=== PATIENT | female | born 1990 | race African-American/Black ===

== ENCOUNTER 2016-11-27 21:31 | Emergency (ER) | payer SELFPAY ==
[2016-11-27 21:47] VITALS: BP 124/90
--- NOTE | 2016-11-27 21:48 | ER Document Report ---
ED Medical Screen (RME) - General Chief Complaint: Flank Pain Stated Complaint: URINARY ISSUE/MEDICATION REACTION Mode of Arrival: Ambulatory Information source: Patient Notes: pt c/o cp off/on for past 2 weeks that is constant for past hour. Pt was seen here on 11/18/16 and dx with UTI, "that had gone to the kidneys". Pt states she did not get the medication and start taking the cipro until yesterday. Pt c/o right flank pain for the past 2 weeks. Pt also c/o RLE pain TRAVEL OUTSIDE OF THE [place] IN LAST 30 DAYS: No - Related Data Allergies/Adverse Reactions: hydrocodone bitartrate [From Vicodin] Allergy (Intermediate, Verified 11/30/14 13:16) Hives tramadol [Tramadol] Allergy (Intermediate, Verified 11/30/14 13:16) Hives Past Medical History Pulmonary Medical History: Reports: Hx Asthma GI Medical History: Reports: Hx Gastroesophageal Reflux Disease Past Surgical History: Reports: Hx Section - Immunizations Hx Diphtheria, Pertussis, Tetanus Vaccination: Yes Physical Exam - Back Back: CVA tenderness - right
--- NOTE | 2016-11-27 22:32 | EKG REPORT ---
SEVERITY:- ABNORMAL ECG - SINUS TACHYCARDIA : Confirmed by: Iftikhar Leon MD 27-Nov-2016 22:31:41
[2016-11-27 23:13] LABS: ABSOLUTE EOSINOPHILS # (AUTO) 0.3 10^3/uL (0.0-0.6); ABSOLUTE MONOCYTES (AUTO) 0.7 10^3/uL (0.1-1.4); ABSOLUTE NEUT (AUTO) 4.7 10^3/uL (1.7-8.2); BASOPHILS % (AUTO) 0.3 % (0-2); EOSINOPHILS % (AUTO) 3.6 % (0-6); HEMATOCRIT 32.3 % (36.0-47.0); HEMOGLOBIN 10.5 g/dL (12.0-15.5); HGB HCT DIFFERENCE -0.8; LYMPHOCYTES % (AUTO) 34.1 % (13-45); MEAN CORPUSCULAR HEMOGLOBIN 27.4 pg (27.0-33.4); MEAN CORPUSCULAR HGB CONC 32.5 g/dL (32.0-36.0); MEAN CORPUSCULAR VOLUME 85 fl (80-97); MONOCYTES % (AUTO) 8.5 % (3-13); RED BLOOD COUNT 3.82 10^6/uL (3.72-5.28); RED CELL DISTRIBUTION WIDTH 14.9 % (11.5-14.0); SEGMENTED NEUTROPHILS % (AUTO) 53.5 % (42-78); WHITE BLOOD COUNT 8.8 10^3/uL (4.0-10.5)
[2016-11-27 23:27] LABS: ALANINE AMINOTRANSFERASE 22 U/L (9-52); ALBUMIN 4.6 g/dL (3.5-5.0); ALKALINE PHOSPHATASE 53 U/L (38-126); ANION GAP 14 (5-19); ASPARTATE AMINO TRANSFERASE 15 U/L (14-36); BILIRUBIN,TOTAL 0.3 mg/dL (0.2-1.3); BLOOD UREA NITROGEN 12 mg/dL (7-20); CALCIUM 9.6 mg/dL (8.4-10.2); CARBON DIOXIDE 22 mmol/L (22-30); CHLORIDE 109 mmol/L (98-107); CREATININE RESULT 0.87 mg/dL (0.52-1.25); GLUCOSE 92 mg/dL (75-110); LIPASE 64.4 U/L (23-300); POTASSIUM 4.2 mmol/L (3.6-5.0); SODIUM 144.8 mmol/L (137-145); TOTAL PROTEIN 7.7 g/dL (6.3-8.2)
[2016-11-27 23:40] LABS: APPEARANCE,URINE CLEAR; BILIRUBIN,URINE NEGATIVE (NEGATIVE); GLUCOSE, URINE NEGATIVE (NEGATIVE); KETONES,URINE NEGATIVE (NEGATIVE); LEUKOCYTE ESTERASE,URINE NEGATIVE (NEGATIVE); NITRITE,URINE NEGATIVE (NEGATIVE); PROTEIN,URINE NEGATIVE (NEGATIVE); URINE SPECIFIC GRAVITY 1.012; UROBILINOGEN,URINE NEGATIVE mg/dL (<2.0)
--- NOTE | 2016-11-27 23:50 | ER Document Report ---
ED General - General Chief Complaint: Flank Pain Stated Complaint: URINARY ISSUE/MEDICATION REACTION Mode of Arrival: Ambulatory Notes: Patient is a 26-year-old female with past medical history of frequent flank pain who presents with a multitude of complaints including ongoing left flank pain, nausea, vomiting and intermittent chest burning. She's been evaluated in this emergency department on a multitude of occasions for the same complaint. At time of my assessment she admits only to left flank pain and denies additional complaints that she mentioned in triage. Admits not starting her antibiotic that she was prescribed for her nephritis until earlier today. She has not seen her primary care physician regarding today's concerns. Nothing improves or worsens her symptoms. TRAVEL OUTSIDE OF THE [place] IN LAST 30 DAYS: No - Related Data Allergies/Adverse Reactions: hydrocodone bitartrate [From Vicodin] Allergy (Intermediate, Verified 11/30/14 13:16) Hives tramadol [Tramadol] Allergy (Intermediate, Verified 11/30/14 13:16) Hives Past Medical History - General Information source: Patient - Social History Smoking Status: Current Every Day Smoker Frequency of alcohol use: None Drug Abuse: None Lives with: Spouse/Significant other Family History: Reviewed & Not Pertinent Patient has suicidal ideation: No Patient has homicidal ideation: No Pulmonary Medical History: Reports: Hx Asthma GI Medical History: Reports: Hx Gastroesophageal Reflux Disease Past Surgical History: Reports: Hx Section - Immunizations Hx Diphtheria, Pertussis, Tetanus Vaccination: Yes Review of Systems - Review of Systems Notes: Constitutional: Negative for fever. HENT: Negative for sore throat. Eyes: Negative for visual changes. Cardiovascular: Negative for chest pain. Respiratory: Negative for shortness of breath. Gastrointestinal: Negative for abdominal pain, vomiting or diarrhea. Positive for left flank pain Genitourinary: Negative for dysuria. Musculoskeletal: Negative for back pain. Skin: Negative for rash. Neurological: Negative for headaches, weakness or numbness. 10 point ROS negative except as marked above and in HPI. Physical Exam - Vital signs Vitals: Temp Pulse Resp BP Pulse Ox 98.3 F 101 H 16 124/90 H 99 11/27/16 21:46 11/27/16 21:46 11/27/16 21:46 11/27/16 21:46 11/27/16 21:46 Interpretation: Tachycardic Notes: PHYSICAL EXAMINATION: GENERAL: Well-appearing, well-nourished and in no acute distress. HEAD: Atraumatic, normocephalic. EYES: Pupils equal round and reactive to light, extraocular movements intact, sclera anicteric, conjunctiva are normal. ENT: nares patent, oropharynx clear without exudates. Moist mucous membranes. NECK: Normal range of motion, supple without lymphadenopathy LUNGS: Breath sounds clear to auscultation bilaterally and equal. No wheezes rales or rhonchi. HEART: Regular rate and rhythm without murmurs ABDOMEN: Soft, nontender, normoactive bowel sounds. No guarding, no rebound. No masses appreciated. Mild left CVA tenderness EXTREMITIES: Normal range of motion, no pitting or edema. No cyanosis. NEUROLOGICAL: No focal neurological deficits. Moves all extremities spontaneously and on command. PSYCH: Normal mood, normal affect. SKIN: Warm, Dry, normal turgor, no rashes or lesions noted. Course - Re-evaluation Re-evalutation: 11/28/16 04:33 Patient presents with ongoing flank pain that is not resolved although she admits to not starting her ciprofloxacin until earlier today. Vitals are within normal limits at triage and at time of discharge. Physical examination is unremarkable. Patient has tolerated oral intake without difficulty. Patient was not noted to be in distress at any point during their ER visit. At this time, based on the reassuring evaluation, I do not suspect an acute [place], pulmonary embolus, aortic dissection, acute intra-abdominal pathology, stroke, or sepsis.she has been seen in this emergency department multiple times for the same complaint. Will discharge with return precautions and follow-up recommendations. Instructed to continue her antibiotic therapy at this time. Verbal discharge instructions given a the bedside and opportunity for questions given. Medication warnings reviewed. Patient is in agreement with this plan and has verbalized understanding of return precautions and the need for primary care follow-up in the next 24-72 hours. - Vital Signs Vital signs: Temp Pulse Resp BP Pulse Ox 98.3 F 101 H 16 124/90 H 99 11/27/16 21:46 11/27/16 21:46 11/27/16 21:46 11/27/16 21:46 11/27/16 21:46 - Laboratory Result Diagrams: 11/27/16 22:59 11/27/16 22:59 Laboratory results interpreted by me: 11/27/16 11/27/16 22:59 22:59 Hgb 10.5 L Hct 32.3 L RDW 14.9 H Chloride 109 H - Diagnostic Test Radiology reviewed: Image reviewed, Reports reviewed Radiology results interpreted by me: 11/28/16 04:33 Chest x-ray: No acute infiltrate - EKG Interpretation by Me Additional EKG results interpreted by me: 11/28/16 04:34 Normal sinus rhythm. Rate 96.Elevations or depressions. QTC 450. Discharge - Discharge Clinical Impression: Flank pain Condition: Good Disposition: HOME, SELF-CARE Additional Instructions: Please return to the emergency room immediately if you experience any concerning symptoms including high fevers, severe headache, chest pain, difficulty breathing, abdominal pain, slurred speech, numbness or weakness in your arms or legs, or any other symptom that concerns you.
[2016-11-28 00:12] LABS: URINE METHADONE SCREEN NEGATIVE; URINE PHENCYCLIDINE SCREEN NEGATIVE
[2016-11-28 00:48] LABS: URINE BARBITURATES SCREEN UNCONFIRMED POSITIVE
== END 2016-11-28 01:46 | disposition home or self-care (01) ==
LOC: ER 21:31
DX: N05.9 Unspecified nephritic syndrome with unspecified morphologic changes (principal); R10.9 Unspecified abdominal pain; R00.0 Tachycardia, unspecified; J45.909 Unspecified asthma, uncomplicated; F17.200 Nicotine dependence, unspecified, uncomplicated; Z88.5 Allergy status to narcotic agent; Z87.19 Personal history of other diseases of the digestive system
CPT/HCPCS: 93005; 99284; 36415; 87040; 87086; 83690; 85025; 81025; 80053; 81001; 71020; 93010; G0479; 80301

== ENCOUNTER 2016-12-02 09:49 | Emergency (ER) | payer SELFPAY ==
[2016-12-02 11:27] LABS: ABSOLUTE EOSINOPHILS # (AUTO) 0.2 10^3/uL (0.0-0.6); ABSOLUTE LYMPHOCYTES (AUTO) 1.7 10^3/uL (0.5-4.7); ABSOLUTE MONOCYTES (AUTO) 0.5 10^3/uL (0.1-1.4); ABSOLUTE NEUT (AUTO) 5.1 10^3/uL (1.7-8.2); BASOPHILS % (AUTO) 0.3 % (0-2); EOSINOPHILS % (AUTO) 2.2 % (0-6); HEMATOCRIT 31.4 % (36.0-47.0); HEMOGLOBIN 10.3 g/dL (12.0-15.5); HGB HCT DIFFERENCE -0.5; LYMPHOCYTES % (AUTO) 22.6 % (13-45); MEAN CORPUSCULAR HEMOGLOBIN 27.4 pg (27.0-33.4); MEAN CORPUSCULAR HGB CONC 32.8 g/dL (32.0-36.0); MEAN CORPUSCULAR VOLUME 84 fl (80-97); MONOCYTES % (AUTO) 6.9 % (3-13); RED BLOOD COUNT 3.76 10^6/uL (3.72-5.28); RED CELL DISTRIBUTION WIDTH 15.3 % (11.5-14.0); WHITE BLOOD COUNT 7.5 10^3/uL (4.0-10.5)
[2016-12-02 11:41] LABS: ALANINE AMINOTRANSFERASE 29 U/L (9-52); ALBUMIN 4.5 g/dL (3.5-5.0); ALKALINE PHOSPHATASE 55 U/L (38-126); ANION GAP 12 (5-19); ASPARTATE AMINO TRANSFERASE 18 U/L (14-36); BILIRUBIN,TOTAL 0.8 mg/dL (0.2-1.3); BLOOD UREA NITROGEN 9 mg/dL (7-20); CALCIUM 9.6 mg/dL (8.4-10.2); CARBON DIOXIDE 21 mmol/L (22-30); CHLORIDE 110 mmol/L (98-107); CREATINE KINASE 171 U/L (30-135); CREATININE RESULT 0.93 mg/dL (0.52-1.25); GLUCOSE 80 mg/dL (75-110); LIPASE 35.1 U/L (23-300); POTASSIUM 4.1 mmol/L (3.6-5.0); SODIUM 143.3 mmol/L (137-145); TOTAL PROTEIN 7.6 g/dL (6.3-8.2)
[2016-12-02 11:51] LABS: CREATINE KINASE MB < 0.22 ng/mL (<4.55); TROPONIN I < 0.012 ng/mL
--- NOTE | 2016-12-02 11:52 | EKG REPORT ---
SEVERITY:- BORDERLINE ECG - SINUS TACHYCARDIA VENTRICULAR PREMATURE COMPLEX BORDERLINE PROLONGED QT INTERVAL BLOCKED APC AND APCs : Confirmed by: Verna Callejas 02-Dec-2016 11:52:26
[2016-12-02] MEDS ORDERED: NORMAL SALINE 1000 ML 1,000 ML IV ONE (12:09)
--- NOTE | 2016-12-02 12:10 | ER Document Report ---
ED General - General Chief Complaint: Shortness Of Breath Stated Complaint: CHEST PAIN,SHORTNESS OF BREATH Mode of Arrival: Ambulatory Information source: Patient Notes: Patient presents complaining of midsternal chest pain that started last night around midnight. Patient describes pain as a pressure. Patient states that she has some shortness of breath when she takes deep breath. Patient states she does have a history of anxiety and has had similar symptoms to this in the past although not usually this severe. Patient denies any fever, cough, or recent illness. Patient does report dizziness off and on in which she feels off balance. Patient denies any personal history of DVT or PE in the past. Patient denies any recent travel, bedrest, or immobilization. Patient does report a history of reflux TRAVEL OUTSIDE OF THE [place] IN LAST 30 DAYS: No - HPI Onset: Yesterday Onset/Duration: Gradual Quality of pain: Dull, Pressure Pain Level: 3 Associated symptoms: Chest pain, Shortness of breath. denies: Nonproductive cough, Productive cough, Fever, Nausea, Vomiting Exacerbated by: Denies Relieved by: Denies Similar symptoms previously: Yes - anxiety Recently seen / treated by doctor: No - Related Data Allergies/Adverse Reactions: hydrocodone bitartrate [From Vicodin] Allergy (Intermediate, Verified 12/02/16 10:10) Hives tramadol [Tramadol] Allergy (Intermediate, Verified 12/02/16 10:10) Hives Past Medical History - General Information source: Patient - Social History Smoking Status: Current Every Day Smoker Chew tobacco use (# tins/day): No Frequency of alcohol use: Occasional Drug Abuse: None Occupation: [employer] Lives with: Family Family History: Reviewed & Not Pertinent Patient has suicidal ideation: No Patient has homicidal ideation: No Pulmonary Medical History: Reports: Hx Asthma GI Medical History: Reports: Hx Gastroesophageal Reflux Disease Psychiatric Medical History: Reports: Hx Anxiety Past Surgical History: Reports: Hx Section - Immunizations Hx Diphtheria, Pertussis, Tetanus Vaccination: Yes Review of Systems - Review of Systems Constitutional: No symptoms reported. denies: Fever EENT: No symptoms reported Cardiovascular: Chest pain, Dizziness Respiratory: Short of breath. denies: Cough Gastrointestinal: No symptoms reported. denies: Abdominal pain, Nausea, Vomiting Genitourinary: No symptoms reported. denies: Dysuria Female Genitourinary: No symptoms reported Musculoskeletal: No symptoms reported. denies: Back pain Skin: No symptoms reported Hematologic/Lymphatic: No symptoms reported Neurological/Psychological: Anxiety Physical Exam - Vital signs Vitals: Temp Pulse Resp BP Pulse Ox 98.8 F 106 H 14 128/93 H 96 12/02/16 10:09 12/02/16 10:09 12/02/16 10:09 12/02/16 10:09 12/02/16 10:09 - General General appearance: Appears well, Alert In distress: None Notes: PHYSICAL EXAMINATION: GENERAL: Well-appearing and in no acute distress. HEAD: Atraumatic, normocephalic. EYES: sclera anicteric, conjunctiva are normal. ENT: nares patent. Moist mucous membranes. NECK: Normal range of motion, supple without lymphadenopathy LUNGS: CTAB and equal. No wheezes rales or rhonchi. Mild tenderness anterior chest wall palpation. No crepitus, no subcutaneous emphysema. HEART: Regular rate and rhythm without murmurs ABDOMEN: Soft, nontender, normal bowel sounds, no guarding. EXTREMITIES: Normal range of motion, no pitting edema. No cyanosis. BACK: No midline tenderness, no step-off or deformity. No CVA tenderness NEUROLOGICAL: Cranial nerves grossly intact. Normal speech. Normal gait. PSYCH: Normal mood, normal affect. SKIN: Warm, Dry, normal turgor, no rashes or lesions noted Course - Re-evaluation Re-evalutation: 12/02/16 14:16 Patient reports that chest pain discomfort symptoms resolved after GI cocktail. Discussed worsening signs or symptoms that patient should return immediately. Patient verbalized understanding of instructions and agrees with plan of care. The patient has atypical chest pain as the patient's chest pain is not suggestive of pulmonary embolus, cardiac ischemia, aortic dissection, or other serious etiology. Given the extremely low risk of these diagnoses for the test in evaluation for these possibilities does not appear to be indicated at this time. Patient has been instructed to return if the symptoms worsen or change in any way. Using PERC patient with low risk of PE at this time. HEART score 2, H-0, E-1, A-1, R-1 (smoking), T-0. 12/02/16 14:19 RN states that earlier blood pressure readings were abnormal as the cough was not properly attached to her arm. Repeat blood pressure with properly applied cough was within normal limits. - Vital Signs Vital signs: Temp Pulse Resp BP Pulse Ox 98.5 F 87 16 113/71 97 12/02/16 14:35 12/02/16 14:35 12/02/16 14:35 12/02/16 14:35 12/02/16 14:00 - Laboratory Result Diagrams: 12/02/16 10:37 12/02/16 10:37 Laboratory results interpreted by me: 12/02/16 12/02/16 10:37 10:37 Hgb 10.3 L Hct 31.4 L RDW 15.3 H Chloride 110 H Carbon Dioxide 21 L Creatine Kinase 171 H - Diagnostic Test Radiology reviewed: Reports reviewed Discharge - Discharge Clinical Impression: Hx of gastroesophageal reflux (GERD), Hx of anxiety disorder Chest pain Qualifiers: Chest pain type: unspecified Qualified Code(s): R07.9 - Chest pain, unspecified Condition: Stable Disposition: HOME, SELF-CARE Instructions: Reflux Disease (GERD) ([facility]), Anxiety ([facility]), Chest Pain of Unclear Cause ([facility]) Additional Instructions: Return immediately for any new or worsening symptoms Followup with your primary care provider, call tomorrow to make a followup appointment Prescriptions: Sucralfate [Carafate 1 gm Tablet] 1 gm PO ACHS PRN #40 tablet PRN Reason: Forms: Return to Work Referrals: CHEN DAI MD [Primary Care Provider] - Follow up tomorrow
[2016-12-02] MEDS ORDERED: LIDOCAINE 2% VISCOUS SOLN 20 ML UDCUP PO ONE (12:27)
[2016-12-02] MEDS ORDERED: MAG HYDROX/AL HYDROX/SIMETH SUSP 30 ML UDCUP PO ONE (12:27)
[2016-12-02 12:32] LABS: APPEARANCE,URINE SLIGHTLY-CLOUDY; BILIRUBIN,URINE NEGATIVE (NEGATIVE); GLUCOSE, URINE NEGATIVE (NEGATIVE); KETONES,URINE NEGATIVE (NEGATIVE); LEUKOCYTE ESTERASE,URINE NEGATIVE (NEGATIVE); NITRITE,URINE NEGATIVE (NEGATIVE); PROTEIN,URINE NEGATIVE (NEGATIVE); URINE SPECIFIC GRAVITY 1.027; UROBILINOGEN,URINE NEGATIVE mg/dL (<2.0)
[2016-12-02 12:44] LABS: URINE BARBITURATES SCREEN UNCONFIRMED POSITIVE; URINE METHADONE SCREEN NEGATIVE; URINE PHENCYCLIDINE SCREEN NEGATIVE
[2016-12-02 14:39] VITALS: BP 113/71
== END 2016-12-02 14:36 | disposition home or self-care (01) ==
LOC: ER 09:49
DX: R07.89 Other chest pain (principal); R06.02 Shortness of breath; F41.9 Anxiety disorder, unspecified; R42 Dizziness and giddiness; F17.200 Nicotine dependence, unspecified, uncomplicated; Z87.19 Personal history of other diseases of the digestive system; Z88.5 Allergy status to narcotic agent
CPT/HCPCS: 93005; 99285; 96360; 36415; 82553; 82550; 83690; 84703; 85025; 80053; 81001; 84484; 80307; 71020; 93010; J3490; J7030

== ENCOUNTER 2017-06-20 15:00 | Emergency (ER) | payer SELFPAY ==
--- NOTE | 2017-06-20 15:51 | ER Document Report ---
ED Medical Screen (RME) - General Chief Complaint: Abdominal Pain Stated Complaint: ABDOMINAL PAIN/VAGINAL BLEEDING Time Seen by Provider: 06/20/17 15:29 Mode of Arrival: Ambulatory Information source: Patient - pt has been on depo shots for over a year but recently stopped and has been having abdominal cramps with vaginal bleeding TRAVEL OUTSIDE OF THE [place] IN LAST 30 DAYS: No - Related Data Allergies/Adverse Reactions: hydrocodone bitartrate [From Vicodin] Allergy (Intermediate, Verified 06/20/17 15:09) Hives tramadol [Tramadol] Allergy (Intermediate, Verified 06/20/17 15:09) Hives Past Medical History - Social History Chew tobacco use (# tins/day): No Frequency of alcohol use: None Drug Abuse: None Pulmonary Medical History: Reports: Hx Asthma Renal/ Medical History: Denies: Hx Peritoneal Dialysis GI Medical History: Reports: Hx Gastroesophageal Reflux Disease Psychiatric Medical History: Reports: Hx Anxiety Past Surgical History: Reports: Hx Section - Immunizations Hx Diphtheria, Pertussis, Tetanus Vaccination: Yes Physical Exam - Vital signs Vitals: Temp Pulse Resp BP Pulse Ox 98.2 F 89 16 119/89 H 98 06/20/17 15:11 06/20/17 15:11 06/20/17 15:11 06/20/17 15:11 06/20/17 15:11 Course - Vital Signs Vital signs: Temp Pulse Resp BP Pulse Ox 98.2 F 89 16 119/89 H 98 06/20/17 15:11 06/20/17 15:11 06/20/17 15:11 06/20/17 15:11 06/20/17 15:11
[2017-06-20 15:59] LABS: HEMOGLOBIN 11.4 g/dL (12.0-15.5); HGB HCT DIFFERENCE -1.8; MEAN CORPUSCULAR HEMOGLOBIN 27.5 pg (27.0-33.4); MEAN CORPUSCULAR HGB CONC 31.7 g/dL (32.0-36.0); MEAN CORPUSCULAR VOLUME 87 fl (80-97); RED BLOOD COUNT 4.15 10^6/uL (3.72-5.28); RED CELL DISTRIBUTION WIDTH 13.5 % (11.5-14.0); WHITE BLOOD COUNT 7.2 10^3/uL (4.0-10.5)
[2017-06-20 16:08] LABS: APPEARANCE,URINE CLEAR; BILIRUBIN,URINE NEGATIVE (NEGATIVE); GLUCOSE, URINE NEGATIVE (NEGATIVE); KETONES,URINE NEGATIVE (NEGATIVE); LEUKOCYTE ESTERASE,URINE NEGATIVE (NEGATIVE); NITRITE,URINE NEGATIVE (NEGATIVE); PROTEIN,URINE NEGATIVE (NEGATIVE); URINE SPECIFIC GRAVITY 1.023; UROBILINOGEN,URINE NEGATIVE mg/dL (<2.0)
[2017-06-20 16:14] LABS: ALANINE AMINOTRANSFERASE 28 U/L (9-52); ALBUMIN 4.2 g/dL (3.5-5.0); ALKALINE PHOSPHATASE 71 U/L (38-126); ANION GAP 10 (5-19); ASPARTATE AMINO TRANSFERASE 18 U/L (14-36); BILIRUBIN,DIRECT 0.4 mg/dL (0.0-0.4); BILIRUBIN,TOTAL 0.5 mg/dL (0.2-1.3); BLOOD UREA NITROGEN 13 mg/dL (7-20); CALCIUM 8.8 mg/dL (8.4-10.2); CARBON DIOXIDE 24 mmol/L (22-30); CHLORIDE 107 mmol/L (98-107); CREATININE RESULT 0.83 mg/dL (0.52-1.25); GLUCOSE 89 mg/dL (75-110); POTASSIUM 4.4 mmol/L (3.6-5.0); SODIUM 141.2 mmol/L (137-145); TOTAL PROTEIN 7.7 g/dL (6.3-8.2)
--- NOTE | 2017-06-20 17:05 | ER Document Report ---
ED GI/ - General Chief Complaint: Abdominal Pain Stated Complaint: ABDOMINAL PAIN/VAGINAL BLEEDING Time Seen by Provider: 06/20/17 15:29 Mode of Arrival: Ambulatory Information source: Patient Notes: 27-year-old female complaining of heavy vaginal bleeding and clots since Tuesday. It is the first. Since she took her last upper shot July 2016. She does have some pelvic cramping. She does not feel that she is at risk for STD. No history of fibroids, endometriosis, ovarian cyst. Normal Pap smears in the past. No fever. TRAVEL OUTSIDE OF THE [place] IN LAST 30 DAYS: No - Related Data Allergies/Adverse Reactions: hydrocodone bitartrate [From Vicodin] Allergy (Intermediate, Verified 06/20/17 15:09) Hives tramadol [Tramadol] Allergy (Intermediate, Verified 06/20/17 15:09) Hives Past Medical History - General Information source: Patient Last Menstrual Period: - Social History Smoking Status: Current Every Day Smoker Chew tobacco use (# tins/day): No Frequency of alcohol use: None Drug Abuse: None Lives with: Family Family History: Reviewed & Not Pertinent Pulmonary Medical History: Reports: Hx Asthma Renal/ Medical History: Denies: Hx Peritoneal Dialysis GI Medical History: Reports: Hx Gastroesophageal Reflux Disease Psychiatric Medical History: Reports: Hx Anxiety Past Surgical History: Reports: Hx Section - Immunizations Hx Diphtheria, Pertussis, Tetanus Vaccination: Yes Review of Systems - Review of Systems Constitutional: No symptoms reported EENT: No symptoms reported Cardiovascular: No symptoms reported Respiratory: No symptoms reported Gastrointestinal: No symptoms reported Genitourinary: No symptoms reported Female Genitourinary: See HPI Musculoskeletal: No symptoms reported Skin: No symptoms reported Hematologic/Lymphatic: No symptoms reported Neurological/Psychological: No symptoms reported Physical Exam - Vital signs Vitals: Temp Pulse Resp BP Pulse Ox 98.2 F 89 16 119/89 H 98 06/20/17 15:11 06/20/17 15:11 06/20/17 15:11 06/20/17 15:11 06/20/17 15:11 Interpretation: Normal - General General appearance: Appears well, Alert - HEENT Head: Normocephalic, Atraumatic Eyes: Normal Pupils: PERRL - Respiratory Respiratory status: No respiratory distress Chest status: Nontender Breath sounds: Normal Chest palpation: Normal - Cardiovascular Rhythm: Regular Heart sounds: Normal auscultation Murmur: No - Abdominal Inspection: Normal Distension: No distension Bowel sounds: Normal Tenderness: Tender - Suprapubic and right pelvis Organomegaly: No organomegaly - Genitourinary External exam: Normal Speculum exam: Normal, Cervix closed Vaginal bleeding: Mild - Blood Bimanuel exam: No: Cervical motion tender - Back Back: Normal, Nontender. No: CVA tenderness - Extremities General upper extremity: Normal inspection, Nontender, Normal color, Normal ROM , Normal temperature General lower extremity: Normal inspection, Nontender, Normal color, Normal ROM , Normal temperature, Normal weight bearing. No: Christophe's sign - Neurological Neuro grossly intact: Yes Cognition: Normal Orientation: AAOx4 Nicole Coma Scale Eye Opening: Spontaneous Nicole Coma Scale Verbal: Oriented Sheridan Coma Scale Motor: Obeys Commands Sheridan Coma Scale Total: 15 Speech: Normal Motor strength normal: LUE, RUE, LLE, RLE Sensory: Normal - Psychological Associated symptoms: Normal affect, Normal mood - Skin Skin Temperature: Warm Skin Moisture: Dry Skin Color: Normal Skin irregularity: negative: Rash Course - Re-evaluation Re-evalutation: 06/20/17 17:57 Urinalysis is negative, test is negative, hemoglobin is 11.4. 06/20/17 17:57 06/20/17 18:53 Prep is negative and the ultrasound is negative 06/21/17 07:40 late entry, std cx negative. - Vital Signs Vital signs: Temp Pulse Resp BP Pulse Ox 98.0 F 80 16 115/85 100 06/20/17 19:06 06/20/17 19:06 06/20/17 19:06 06/20/17 19:06 06/20/17 19:06 - Laboratory Result Diagrams: 06/20/17 15:44 06/20/17 15:44 Laboratory results interpreted by me: 06/20/17 06/20/17 15:44 15:44 Hgb 11.4 L MCHC 31.7 L Urine Blood SMALL H Discharge - Discharge Clinical Impression: Vaginal bleeding, pelvic Pain Condition: Good Disposition: HOME, SELF-CARE Instructions: Pelvic Pain ([facility]), Anti-Inflammatory Medication ([facility]), Ob-[employer], Vaginal Bleeding ([facility]) Additional Instructions: see obgyn if persists to er if increased bleeding, lightheadedness, fever call me in 3 hours for the std culture result [phone] Please complete the patient satisfaction survey if you get one, and return it.. If you do not receive a survey, then you can go to the [facility] website, [email or web address] and place your comments about your very good care. Thank you very much. It was a pleasure being your medical provider today. Prescriptions: Ibuprofen [Motrin 600 mg Tablet] 600 mg PO Q8HP PRN #30 tablet PRN Reason: Forms: Return to Work Referrals: DALTON KATHLEEN MD [Primary Care Provider] - Follow up as needed
--- NOTE | 2017-06-20 18:46 | RADIOLOGY REPORT (SQ) ---
EXAM DESCRIPTION: U/S NON OB PEL TV W/DOPPLER COMPLETED DATE/TIME: 06/20/2017 6:34 pm REASON FOR STUDY: cramps, bleeding, right pelvic pain COMPARISON: None. TECHNIQUE: Dynamic and static grayscale images acquired of the pelvis via transvaginal approach and recorded on PACS. Additional selected color Doppler and spectral images recorded. LIMITATIONS: None. FINDINGS: UTERUS: Contour normal. No mass. ENDOMETRIAL STRIPE: No focal or generalized thickening. No masses. CERVIX: No nabothian cysts. RIGHT OVARY: No abnormal masses. RIGHT OVARY DOPPLER: Normal arterial vascular flow without evidence for torsion. LEFT OVARY: No abnormal masses. LEFT OVARY DOPPLER: Normal arterial vascular flow without evidence for torsion. FREE FLUID: None noted. OTHER: No other significant finding. MEASUREMENTS: UTERUS: 8.7 x 5.4 x 4 cm ENDOMETRIAL STRIPE: 2 mm RIGHT OVARY: 2.5 x 2.2 x 2.3 cm LEFT OVARY: 3.7 x 2.0 x 1.7 cm IMPRESSION: NORMAL TRANSVAGINAL PELVIC ULTRASOUND. TECHNICAL DOCUMENTATION: JOB ID: [id number]- All Rights Reserved
[2017-06-20] MEDS ORDERED: IBUPROFEN 600 MG TABLET PO ONE (18:55)
[2017-06-20 19:07] VITALS: BP 115/85
[2017-06-20 19:07] LABS: CHLAM PCR NOT DETECTED (NOT DETECT)
== END 2017-06-20 19:07 | disposition home or self-care (01) ==
LOC: ER 15:00
DX: R10.2 Pelvic and perineal pain (principal); N93.9 Abnormal uterine and vaginal bleeding, unspecified; J45.909 Unspecified asthma, uncomplicated; F17.200 Nicotine dependence, unspecified, uncomplicated; Z88.5 Allergy status to narcotic agent
CPT/HCPCS: 36415; 76830; 80053; 81001; 81025; 85027; 87210; 87491; 87591; 93976; 99284

== ENCOUNTER 2017-10-16 14:46 | Emergency (ER) | payer MEDICAID ==
--- NOTE | 2017-10-16 15:33 | ER Document Report ---
ED Medical Screen (RME) - General Chief Complaint: Cough Stated Complaint: HEADACHE,COUGH,CONGESTION Time Seen by Provider: 10/16/17 15:30 Mode of Arrival: Ambulatory Information source: Patient TRAVEL OUTSIDE OF THE [place] IN LAST 30 DAYS: No - HPI Patient complains to provider of: productive cough, AMAYA, congestion Onset: Other - pt states she has been having cough productive of green sputum, with AMAYA for the psat 2-3 days. Denies fever today - Related Data Allergies/Adverse Reactions: hydrocodone bitartrate [From Vicodin] Allergy (Intermediate, Verified 10/16/17 15:01) Hives tramadol [Tramadol] Allergy (Intermediate, Verified 10/16/17 15:01) Hives Past Medical History - Social History Chew tobacco use (# tins/day): No Frequency of alcohol use: None Pulmonary Medical History: Reports: Hx Asthma Renal/ Medical History: Denies: Hx Peritoneal Dialysis GI Medical History: Reports: Hx Gastroesophageal Reflux Disease Psychiatric Medical History: Reports: Hx Anxiety Past Surgical History: Reports: Hx Section - Immunizations Hx Diphtheria, Pertussis, Tetanus Vaccination: Yes Physical Exam - Vital signs Vitals: Temp Pulse Resp BP Pulse Ox 98.9 F 97 16 125/88 H 98 10/16/17 15:03 10/16/17 15:03 10/16/17 15:03 10/16/17 15:03 10/16/17 15:03 Course - Vital Signs Vital signs: Temp Pulse Resp BP Pulse Ox 98.9 F 97 16 125/88 H 98 10/16/17 15:03 10/16/17 15:03 10/16/17 15:03 10/16/17 15:03 10/16/17 15:03
[2017-10-16 15:58] LABS: ABSOLUTE BASOPHILS # (AUTO) 0.1 10^3/uL (0.0-0.2); ABSOLUTE EOSINOPHILS # (AUTO) 0.3 10^3/uL (0.0-0.6); ABSOLUTE LYMPHOCYTES (AUTO) 2.2 10^3/uL (0.5-4.7); ABSOLUTE MONOCYTES (AUTO) 0.7 10^3/uL (0.1-1.4); ABSOLUTE NEUT (AUTO) 4.3 10^3/uL (1.7-8.2); BASOPHILS % (AUTO) 0.8 % (0-2); EOSINOPHILS % (AUTO) 3.6 % (0-6); LYMPHOCYTES % (AUTO) 29.7 % (13-45); MEAN CORPUSCULAR HEMOGLOBIN 27.8 pg (27.0-33.4); MEAN CORPUSCULAR HGB CONC 32.4 g/dL (32.0-36.0); MEAN CORPUSCULAR VOLUME 86 fl (80-97); MONOCYTES % (AUTO) 9.2 % (3-13); RED BLOOD COUNT 3.98 10^6/uL (3.72-5.28); RED CELL DISTRIBUTION WIDTH 13.9 % (11.5-14.0); SEGMENTED NEUTROPHILS % (AUTO) 56.7 % (42-78); WHITE BLOOD COUNT 7.6 10^3/uL (4.0-10.5)
[2017-10-16 16:15] LABS: ALANINE AMINOTRANSFERASE 57 U/L (9-52); ALBUMIN 4.3 g/dL (3.5-5.0); ALKALINE PHOSPHATASE 70 U/L (38-126); ANION GAP 12 (5-19); ASPARTATE AMINO TRANSFERASE 22 U/L (14-36); BILIRUBIN,DIRECT 0.4 mg/dL (0.0-0.4); BILIRUBIN,TOTAL 0.5 mg/dL (0.2-1.3); BLOOD UREA NITROGEN 11 mg/dL (7-20); CALCIUM 9.2 mg/dL (8.4-10.2); CARBON DIOXIDE 24 mmol/L (22-30); CHLORIDE 108 mmol/L (98-107); CREATININE RESULT 0.82 mg/dL (0.52-1.25); GLUCOSE 81 mg/dL (75-110); POTASSIUM 4.7 mmol/L (3.6-5.0); TOTAL PROTEIN 7.7 g/dL (6.3-8.2)
--- NOTE | 2017-10-16 16:16 | RADIOLOGY REPORT (SQ) ---
EXAM DESCRIPTION: CHEST PA/LAT COMPLETED DATE/TIME: 10/16/2017 3:55 pm REASON FOR STUDY: productive cough COMPARISON: November 2016 EXAM PARAMETERS: NUMBER OF VIEWS: two views TECHNIQUE: Digital Frontal and Lateral radiographic views of the chest acquired. RADIATION DOSE: NA LIMITATIONS: none FINDINGS: LUNGS AND PLEURA: No opacities, masses or pneumothorax. No pleural effusion. MEDIASTINUM AND HILAR STRUCTURES: No masses or contour abnormalities. HEART AND VASCULAR STRUCTURES: Heart normal size. No evidence for failure. BONES: No acute findings. HARDWARE: None in the chest. OTHER: No other significant finding. IMPRESSION: NO SIGNIFICANT RADIOGRAPHIC FINDING IN THE CHEST. TECHNICAL DOCUMENTATION: JOB ID: [id number] [employer]- All Rights Reserved
[2017-10-16 16:21] LABS: APPEARANCE,URINE CLEAR; BILIRUBIN,URINE NEGATIVE (NEGATIVE); GLUCOSE, URINE NEGATIVE (NEGATIVE); KETONES,URINE NEGATIVE (NEGATIVE); LEUKOCYTE ESTERASE,URINE SMALL (NEGATIVE); NITRITE,URINE NEGATIVE (NEGATIVE); PROTEIN,URINE NEGATIVE (NEGATIVE); URINE SPECIFIC GRAVITY 1.019; UROBILINOGEN,URINE NEGATIVE mg/dL (<2.0)
--- NOTE | 2017-10-16 17:30 | ER Document Report ---
ED Respiratory Problem - General Chief Complaint: Cough Stated Complaint: HEADACHE,COUGH,CONGESTION Time Seen by Provider: 10/16/17 15:30 Mode of Arrival: Ambulatory Information source: Patient TRAVEL OUTSIDE OF THE [place] IN LAST 30 DAYS: No - HPI Patient complains to provider of: Cough Onset: Other - 3 days Duration: Worse/persistent Quality of pain: Achy Severity: Mild Pain Level: 2 Context: Smoker Short of Breath: Mild Chest pain/discomfort: Tightness Cough: Productive Sputum amount: Small Sputum color: Green Associated symptoms: Chills, Congestion, Cough, Fever Notes: Patient is a 27-year-old female who is a smoker, who presents to the emergency room today complaining of 3 day history of cough which is productive of dark green phlegm, with a fever of 101.7 on Tuesday, multiple sick contacts recently - Related Data Allergies/Adverse Reactions: hydrocodone bitartrate [From Vicodin] Allergy (Intermediate, Verified 10/16/17 15:01) Hives tramadol [Tramadol] Allergy (Intermediate, Verified 10/16/17 15:01) Hives Past Medical History - General Information source: Patient - Social History Smoking Status: Current Every Day Smoker Chew tobacco use (# tins/day): No Frequency of alcohol use: None Family History: Reviewed & Not Pertinent Patient has suicidal ideation: No Patient has homicidal ideation: No Pulmonary Medical History: Reports: Hx Asthma Renal/ Medical History: Denies: Hx Peritoneal Dialysis GI Medical History: Reports: Hx Gastroesophageal Reflux Disease Psychiatric Medical History: Reports: Hx Anxiety Past Surgical History: Reports: Hx Section - Immunizations Hx Diphtheria, Pertussis, Tetanus Vaccination: Yes Review of Systems - Review of Systems Constitutional: Fever EENT: No symptoms reported Cardiovascular: No symptoms reported Respiratory: See HPI Gastrointestinal: No symptoms reported Genitourinary: No symptoms reported Female Genitourinary: No symptoms reported Musculoskeletal: No symptoms reported Skin: No symptoms reported Hematologic/Lymphatic: No symptoms reported Neurological/Psychological: No symptoms reported -: Yes All other systems reviewed and negative Physical Exam - Vital signs Vitals: Temp Pulse Resp BP Pulse Ox 98.9 F 97 16 125/88 H 98 10/16/17 15:03 10/16/17 15:03 10/16/17 15:03 10/16/17 15:03 10/16/17 15:03 Interpretation: Normal - General General appearance: Appears well, Alert - HEENT Head: Normocephalic, Atraumatic Eyes: Normal Pupils: PERRL - Respiratory Respiratory status: No respiratory distress Chest status: Nontender Breath sounds: Nonproductive cough Chest palpation: Normal - Cardiovascular Rhythm: Regular Heart sounds: Normal auscultation Murmur: No - Abdominal Inspection: Normal Distension: No distension Bowel sounds: Normal Tenderness: Nontender Organomegaly: No organomegaly - Back Back: Normal, Nontender - Extremities General upper extremity: Normal inspection, Nontender, Normal color, Normal ROM , Normal temperature General lower extremity: Normal inspection, Nontender, Normal color, Normal ROM , Normal temperature, Normal weight bearing. No: Christophe's sign - Neurological Neuro grossly intact: Yes Cognition: Normal Orientation: AAOx4 Nicole Coma Scale Eye Opening: Spontaneous [place] Coma Scale Verbal: Oriented Nicole Coma Scale Motor: Obeys Commands Nicole Coma Scale Total: 15 Speech: Normal Motor strength normal: LUE, RUE, LLE, RLE Sensory: Normal - Psychological Associated symptoms: Normal affect, Normal mood - Skin Skin Temperature: Warm Skin Moisture: Dry Skin Color: Normal Course - Re-evaluation Re-evalutation: 10/16/17 17:33 Patient with a productive cough of green phlegm, fever of 101.7 on Tuesday, who is a smoker, lab and imaging findings were discussed at bedside which are unremarkable, symptoms likely related to viral upper respiratory illness, however given the fact the patient had a fever, productive cough and is a smoker I opted to place her on a Z-Tom for treatment of acute bronchitis, I advised for supportive care and good lung health including quit smoking, use a humidifier as needed, drink plenty of fluids, take an [id number] decongestant, patient acknowledges understanding and agreement with this plan - Vital Signs Vital signs: Temp Pulse Resp BP Pulse Ox 98.9 F 97 16 125/88 H 98 10/16/17 15:03 10/16/17 15:03 10/16/17 15:03 10/16/17 15:03 10/16/17 15:03 - Laboratory Result Diagrams: 10/16/17 15:42 10/16/17 15:42 Laboratory results interpreted by me: 10/16/17 10/16/17 10/16/17 15:42 15:42 16:01 Hgb 11.0 L Hct 34.0 L Chloride 108 H ALT 57 H Ur Leukocyte Esterase SMALL H - Diagnostic Test Radiology reviewed: Image reviewed, Reports reviewed Discharge - Discharge Clinical Impression: Acute bronchitis Qualifiers: Bronchitis organism: unspecified organism Qualified Code(s): J20.9 - Acute bronchitis, unspecified Condition: Stable Disposition: HOME, SELF-CARE Instructions: Bronchitis (OM) Additional Instructions: Follow up with your primary care provider in one to 2 days. Return to the emergency room immediately if symptoms worsen or any additional concerns. Prescriptions: Azithromycin [Zithromax 250 mg Tablet] 250 mg PO ASDIR PRN #6 tablet PRN Reason: Forms: Smoking Cessation Education Referrals: ORQUIDEA RODRIGUEZ MD [Primary Care Provider] - Follow up as needed
[2017-10-16 17:43] VITALS: BP 119/87
== END 2017-10-16 17:42 | disposition home or self-care (01) ==
LOC: ER 14:46
DX: J20.9 Acute bronchitis, unspecified (principal); R51 Headache; R50.9 Fever, unspecified; F17.200 Nicotine dependence, unspecified, uncomplicated; Z88.6 Allergy status to analgesic agent
CPT/HCPCS: 36415; 71020; 80053; 81001; 81025; 85025; 87804; 99284

== ENCOUNTER → 2018-11-02 | Outpatient (CLI) | payer SELFPAY ==
--- NOTE | 2018-11-02 15:30 | RADIOLOGY REPORT (SQ) ---
EXAM DESCRIPTION: U/S OB 14+ TRNABD 1GES W/O DOP COMPLETED DATE/TIME: 11/02/2018 3:13 pm REASON FOR STUDY: Z34.82 ENCOUNTER FOR SUPRVSN OF NORMAL , SECOND TRIMESTER Z34.82 ENCOUNT ER FOR SUPRVSN OF NORMAL , SECOND TRI COMPARISON: None. TECHNIQUE: Static and Dynamic grayscale imaging performed of gravid uterus using transabdominal appr oach. Additional selected color Doppler and spectral images recorded. All stored on PACS. LIMITATIONS: None. FINDINGS: FETUSES SEEN:1 EGA: 14 weeks 3 days Calculated using BPD,FL,HC,AC documented on images. No discrepancy with clinica l dates. LINDA: 04/30/2019 EFW: 99+/- 15 grams PERCENTILE: Not calculated LEONOR: Largest pocket 3.4 cm PLACENTA: Anterior grade 1 PRESENTATION: Variable ANATOMY: HEART RATE: 171 beats per minute. FOUR CHAMBER HEART: Visualized. STOMACH: Visualized. Appears normal. SPINE: Normal as visualized. OTHER: Upper and lower extremities were identified MATERNAL ADNEXA: Maternal ovaries not visualized. CERVICAL LENGTH: 3.4 cm Closed. OTHER: No other significant finding. IMPRESSION: LIVING INTRAUTERINE . ESTIMATED GESTATIONAL AGE 14 weeks 3 days NO VISUALIZED ANOMALIES. Trimester of : Second trimester - 13 weeks 1 day to 27 weeks 6 days. TECHNICAL DOCUMENTATION: JOB ID: [id number] [employer]- All Rights Reserved Reading location - IP/workstation name: [email or web address]
== END ==
LOC: RAD 16:05
PROVIDERS: ATTEND Nurse Practitioner
DX: Z34.82 Encounter for supervision of other normal pregnancy, second trimester (principal)
CPT/HCPCS: 76805

== ENCOUNTER 2019-01-25 14:32 | Outpatient (CLI) | payer MEDICAID ==
[2019-01-25 15:21] LABS: APPEARANCE,URINE CLOUDY; BILIRUBIN,URINE NEGATIVE (NEGATIVE); GLUCOSE, URINE NEGATIVE (NEGATIVE); KETONES,URINE NEGATIVE (NEGATIVE); LEUKOCYTE ESTERASE,URINE TRACE (NEGATIVE); NITRITE,URINE NEGATIVE (NEGATIVE); PROTEIN,URINE 30 mg/dL (NEGATIVE); URINE SPECIFIC GRAVITY 1.026
[2019-01-25 15:24] LABS: COLOR,URINE YELLOW
[2019-01-25 15:33] LABS: URINE AMPHETAMINES SCREEN NEGATIVE; URINE BARBITURATES SCREEN NEGATIVE; URINE BENZODIAZEPINES SCREEN NEGATIVE; URINE COCAINE SCREEN NEGATIVE; URINE MARIJUANA (THC) SCREEN NEGATIVE; URINE METHADONE SCREEN NEGATIVE; URINE PHENCYCLIDINE SCREEN NEGATIVE
[2019-01-25] MEDS ORDERED: RINGERS SOLUTION,LACTATED 2,000 ML IV ONE (16:30)
== END 2019-01-25 17:41 | disposition home or self-care (01) ==
LOC: LC 14:32
PROVIDERS: ATTEND Obstetrics & Gynecology Gynecology
PROC: 4A1HXCZ Monitoring of Products of Conception, Cardiac Rate, External Approach (ICD-10-PCS; principal; 2019-01-25)
DX: O26.892 Other specified pregnancy related conditions, second trimester (principal); R10.9 Unspecified abdominal pain; O99.282 Endocrine, nutritional and metabolic diseases complicating pregnancy, second trimester; E86.0 Dehydration; Z3A.26 26 weeks gestation of pregnancy
CPT/HCPCS: 80307; 81001

== ENCOUNTER 2019-03-24 14:51 | Outpatient (CLI) | payer MEDICAID ==
[2019-03-24 15:41] LABS: AMORPHOUS SEDIMENT,URINE TRACE /HPF; APPEARANCE,URINE CLOUDY; BILIRUBIN,URINE NEGATIVE (NEGATIVE); COLOR,URINE YELLOW; GLUCOSE, URINE NEGATIVE (NEGATIVE); KETONES,URINE TRACE mg/dL (NEGATIVE); LEUKOCYTE ESTERASE,URINE TRACE (NEGATIVE); NITRITE,URINE POSITIVE (NEGATIVE); PROTEIN,URINE 30 mg/dL (NEGATIVE); URINE SPECIFIC GRAVITY 1.026
[2019-03-24 15:51] LABS: URINE AMPHETAMINES SCREEN NEGATIVE; URINE BARBITURATES SCREEN NEGATIVE; URINE BENZODIAZEPINES SCREEN NEGATIVE; URINE COCAINE SCREEN NEGATIVE; URINE MARIJUANA (THC) SCREEN NEGATIVE; URINE METHADONE SCREEN NEGATIVE; URINE PHENCYCLIDINE SCREEN NEGATIVE
[2019-03-24] MEDS ORDERED: RINGERS SOLUTION,LACTATED 1,000 ML IV PRN (16:08)
[2019-03-24] MEDS ORDERED: ACETAMINOPHEN 325 MG TABLET PO PRN (16:10)
[2019-03-24] MEDS ORDERED: ONDANSETRON 4 MG TAB.RAPDIS PO PRN (16:10)
[2019-03-24] MEDS ORDERED: CEFTRIAXONE 1 GM/D5W RTU 1 GM/50 ML RTUPB IV SCH (16:30)
[2019-03-24] MEDS ORDERED: CEFTRIAXONE INJ 1000 MG VIAL ONE (16:36)
[2019-03-24] MEDS: RINGERS SOLUTION,LACTATED 1,000 ML IV PRN ×2 (16:45→17:09)
--- NOTE | 2019-03-24 16:58 | Admission Physical ---
Datetime Report Generated by CPN: 03/24/2019 16:57 CURRENT ADMISSION Chief Complaint: Signs/Symptoms UTI; Maternal Discomfort Indication for Induction: Not Applicable Admit Impression : , Intrauterine ; Observation/Evaluation Admit Impression- Other: Pyelonephritis-suspected Admit Plan: Observation/Evaluation Admit Plan- Other: 23hr observation ALLERGIES Medication Allergies: Yes Medication Allergies: hydrocodone bitartrate/MO/Hives (03/24/2019); tramadol/MO/Hives (03/24/2019) Latex: No Latex Allergies Food Allergies: n/a Environmental Allergies: n/a OBSTETRICAL HISTORY EDC: 04/30/2019 00:00 : 2 Para: 1 Term: 1 : 0 SAB: 0 IAB: 0 Ectopic: 0 Livin Cesareans: 1 VBACs: 0 Multiple Births: 0 Gestational Diabetes: No Rh Sensitization: No Incompetent Cervix: No GIBRAN: No Infertility: No ART Treatment: No Uterine Anomaly: No IUGR: No Hx Previous C/S: Yes Macrosomia: No Hx Loss/Stillborn: No PIH: No Hx : No Placenta Previa/Abruption: No Depression/PP Depression: No PTL/PROM: No Post Hemorrhage: No Current Procedures: Ultrasound Obstetrical History Comments: G1- 41 weeks G2- current SEE RECORDS Alcohol: No Marijuana : No Cocaine: No Other Illicit Drugs: No Cigarettes: Current Everyday Smoker. [id number] MEDICAL HISTORY Diabetes: No Blood Transfusion: No Pulmonary Disease (Asthma, TB): No Breast Disease: No Hypertension: No Clother In Surgery: No Heart Disease: No Hosp/Surgery: No Autoimmune Disorder: No Anesthetic Complications: No Kidney Disease: No Abnormal Pap Smear: No Neuro/Epilepsy: No Psychiatric Disorders: No Other Medical Diseases: No Hepatitis/Liver Disease: No Significant Family History: No Varicosities/Phlebitis: No Trauma/Violence : No Thyroid Dysfunction: No INFECTIOUS HISTORY Gonorrhea: No Genital Herpes: No Chlamydia: No Tuberculosis: No Syphilis: No Hepatitis: No HIV/AIDS Exposure: No Rash or Viral Illness: No HPV: No PHYSICAL EXAM General: Normal HEENT: Normal Neurologic: Normal Thyroid: Deferred Heart: Normal Lungs: Normal Breast: Deferred Back: Abnormal Abdomen: Normal Genitourinary Exam: Normal Extremities: Normal DTRs: Normal Pelvic Type: Adequate Physical Exam Comments: Right flank pain with palpation though not overly impressive is present Vital Signs: Reviewed; Within Normal Limits FETUS A EGA: 34.5 Monitoring: External US FHR- Baseline: 140 Variability: Minimal - Undetectable to <=5bpm Decelerations: None FHR Category: Category II Admit Comment: 28yo @ 34w5d presents to L_D with complaints of lower abdomina pressure, not rectal or pelvic pressure. Pt also complains of 6/10 right flank pain. Patient reports good fm, no vb, no lof and ctxs. Pt denies any complications with this other than having a UTI in December that was treated with macrobid but not test of cure seen for her treated UTI in December. Pt states she told her provider in the office on Tuesday that she was have right sided pain that she had in December when she was diagnosed with an E. coli UTI. Review of office records don't show an office UA but does have a recent culture dated 21 March 2019 for E.coli. Pt denies any dysuria or frequency today, only lower abdominal pressure. Patients urine is very concentrated today. heart rate variability is minimal at this time. If continued minimal variability after 2 liters of IVFs, will send patient for a BPP. Pt reports regular movement and movement can be heard with external doppler. PLANS FOR LABOR AND DELIVERY Labor and Delivery: None Feeding Preference: Breast Benefit of Breast Feed Discussed: Yes INFORMED CONSENT Signature: with User ID: [email or web address]
[2019-03-24 17:27] LABS: ANION GAP 8 (5-19); BLOOD UREA NITROGEN 8 mg/dL (7-20); CALCIUM 8.4 mg/dL (8.4-10.2); CARBON DIOXIDE 19 mmol/L (22-30); CHLORIDE 111 mmol/L (98-107); GLUCOSE 80 mg/dL (75-110); POTASSIUM 4.1 mmol/L (3.6-5.0); SODIUM 137.7 mmol/L (137-145)
[2019-03-24 17:35] LABS: ABSOLUTE EOSINOPHILS # (AUTO) 0.2 10^3/uL (0.0-0.6); ABSOLUTE LYMPHOCYTES (AUTO) 2.1 10^3/uL (0.5-4.7); ABSOLUTE MONOCYTES (AUTO) 1.1 10^3/uL (0.1-1.4); ABSOLUTE NEUT (AUTO) 8.8 10^3/uL (1.7-8.2); BASOPHILS % (AUTO) 0.3 % (0-2); EOSINOPHILS % (AUTO) 1.8 % (0-6); HEMATOCRIT 26.7 % (36.0-47.0); HEMOGLOBIN 8.9 g/dL (12.0-15.5); LYMPHOCYTES % (AUTO) 17.5 % (13-45); MEAN CORPUSCULAR HEMOGLOBIN 28.7 pg (27.0-33.4); MEAN CORPUSCULAR HGB CONC 33.2 g/dL (32.0-36.0); MEAN CORPUSCULAR VOLUME 86 fl (80-97); PLATELET COUNT 223 10^3/uL (150-450); RED CELL DISTRIBUTION WIDTH 13.7 % (11.5-14.0); SEGMENTED NEUTROPHILS % (AUTO) 71.4 % (42-78); TOTAL CELLS COUNTED % (AUTO) 100 %; WHITE BLOOD COUNT 12.3 10^3/uL (4.0-10.5)
[2019-03-24] MEDS ORDERED: CEFTRIAXONE SODIUM 1,000 MG in DEXTROSE 5%-WATER 50 ML IV SCH (18:00)
--- NOTE | 2019-03-24 18:51 | Non Stress Test Report ---
Non Stress Test Datetime Report Generated by CPN: 03/24/2019 18:50 DEMOGRAPHIC EGA NST: 34.5 INDICATION Indication for Study: Pyelonephritis; Ordered by Provider MONITORING Monitor Explained: Monitor Explained; Test Explained; Patient Verbalized Understanding Time on Monitor: 03/24/2019 18:14 Time off Monitor: 03/24/2019 18:50 NST Duration: 36 NST INTERVENTIONS NST Interventions: PO Hydration; Reposition Patient Physician Notified NST: Dr. Beebe BABY A: [id number] BABY A Movement : Present Contraction Frequency : Irregular FHR Baseline : 135 Accelerations : 15X15 Decelerations : None Variability : Moderate 6-25bpm NST Review: Meets Criteria for Reactive NST NST Review and Verified By : JOSE E HOFF Results: Reactive NST REPORT Report Trigger: Send Report
== END 2019-03-24 19:48 | disposition home or self-care (01) ==
LOC: LC 14:51 → LR 16:24 → UNDOADMOB 16:24 → UNDODISOB 19:48 → LC 19:48
PROVIDERS: ATTEND Obstetrics & Gynecology
PROC: 4A1HXCZ Monitoring of Products of Conception, Cardiac Rate, External Approach (ICD-10-PCS; principal; 2019-03-24)
DX: O23.03 Infections of kidney in pregnancy, third trimester (principal); O99.283 Endocrine, nutritional and metabolic diseases complicating pregnancy, third trimester; E86.0 Dehydration; Z3A.24 24 weeks gestation of pregnancy
CPT/HCPCS: 59025; 36415; 87086; 85025; 87088; 80048; 81001; 87186; 80307; J0696

== ENCOUNTER 2019-04-27 05:02 | Inpatient (IN) | payer MEDICAID ==
[2019-04-26 10:50] LABS: ABSOLUTE EOSINOPHILS # (AUTO) 0.1 10^3/uL (0.0-0.6); ABSOLUTE LYMPHOCYTES (AUTO) 2.2 10^3/uL (0.5-4.7); ABSOLUTE MONOCYTES (AUTO) 1.1 10^3/uL (0.1-1.4); BASOPHILS % (AUTO) 0.2 % (0-2); EOSINOPHILS % (AUTO) 1.4 % (0-6); HEMATOCRIT 32.5 % (36.0-47.0); HEMOGLOBIN 10.7 g/dL (12.0-15.5); LYMPHOCYTES % (AUTO) 20.7 % (13-45); MEAN CORPUSCULAR HEMOGLOBIN 28.4 pg (27.0-33.4); MEAN CORPUSCULAR HGB CONC 32.9 g/dL (32.0-36.0); MEAN CORPUSCULAR VOLUME 86 fl (80-97); PLATELET COUNT 229 10^3/uL (150-450); RED BLOOD COUNT 3.77 10^6/uL (3.72-5.28); RED CELL DISTRIBUTION WIDTH 14.2 % (11.5-14.0); SEGMENTED NEUTROPHILS % (AUTO) 66.7 % (42-78); TOTAL CELLS COUNTED % (AUTO) 100 %; WHITE BLOOD COUNT 10.4 10^3/uL (4.0-10.5)
[2019-04-26 10:54] LABS: APPEARANCE,URINE SLIGHTLY-CLOUDY; BILIRUBIN,URINE NEGATIVE (NEGATIVE); COLOR,URINE YELLOW; GLUCOSE, URINE NEGATIVE (NEGATIVE); KETONES,URINE NEGATIVE (NEGATIVE); LEUKOCYTE ESTERASE,URINE NEGATIVE (NEGATIVE); NITRITE,URINE NEGATIVE (NEGATIVE); PROTEIN,URINE NEGATIVE (NEGATIVE); URINE SPECIFIC GRAVITY 1.015; UROBILINOGEN,URINE NEGATIVE mg/dL (<2.0)
[2019-04-26 11:19] LABS: URINE AMPHETAMINES SCREEN NEGATIVE; URINE BARBITURATES SCREEN NEGATIVE; URINE BENZODIAZEPINES SCREEN NEGATIVE; URINE COCAINE SCREEN NEGATIVE; URINE MARIJUANA (THC) SCREEN NEGATIVE; URINE METHADONE SCREEN NEGATIVE; URINE PHENCYCLIDINE SCREEN NEGATIVE
[~2019-04-27 05:02] MED LIST: NORMAL SALINE 250 ML IV PRN
[2019-04-27] MEDS ORDERED: RINGERS SOLUTION,LACTATED 1,000 ML IV ONE (05:30)
[2019-04-27] MEDS ORDERED: CEFAZOLIN 2 GM/D5W RTU 2 GM/50 ML RTUPB IV PRN (05:31)
[2019-04-27] MEDS ORDERED: PROPOFOL INJ 200 MG/20 ML VIAL IV ONE (07:05)
[2019-04-27] MEDS ORDERED: CITRIC ACID/SODIUM CITRATE ORAL SOLN 15 ML UDCUP ONE (07:06)
[2019-04-27] MEDS ORDERED: FENTANYL CITRATE INJ/PF 100 MCG/2 ML AMPUL ONE (07:06)
[2019-04-27] MEDS ORDERED: METOCLOPRAMIDE HCL INJ/PF 10 MG/2 ML SDV ONE (07:06)
[2019-04-27] MEDS ORDERED: OXYTOCIN/NORMAL SALINE 20 UNIT/1,000 ML RTUINJ ONE ×2 (07:06→09:52)
[2019-04-27] MEDS ORDERED: ONDANSETRON HCL INJ/PF 4 MG/2 ML SDV ONE (07:07)
[2019-04-27] MEDS ORDERED: METHYLERGONOVINE MALEATE INJ/PF 0.2 MG/1 ML AMPULE ONE (07:20)
[2019-04-27] MEDS ORDERED: MISOPROSTOL 0.2 MG TABLET ONE (07:20)
[2019-04-27] MEDS ORDERED: MIDAZOLAM 2 MG/2 ML INJ ONE (08:24)
[2019-04-27] MEDS ORDERED: DIPHENHYDRAMINE HCL 50 MG/ML VIAL ONE (08:24)
[2019-04-27] MEDS ORDERED: FENTANYL CITRATE INJ/PF 100 MCG/2 ML AMPUL IV PRN ×3 (08:30)
[2019-04-27] MEDS ORDERED: MEPERIDINE HCL/PF INJ 25 MG/1 ML DISP.SYRIN IV PRN (08:30)
[2019-04-27] MEDS ORDERED: PROMETHAZINE HCL INJ 25 MG/1 ML VIAL IV PRN ×3 (08:30→08:50)
[2019-04-27] MEDS ORDERED: SIMETHICONE 80 MG TAB.CHEW PO PRN (08:50)
[2019-04-27] MEDS ORDERED: ACETAMINOPHEN 1,000 MG/100 ML RTUPB IV PRN (08:50)
[2019-04-27] MEDS ORDERED: OXYTOCIN/NORMAL SALINE 20 UNIT/1,000 ML RTUINJ IV PRN (08:50)
[2019-04-27] MEDS ORDERED: DIPH/PERTUSS(ACELL)/TETANUS VAC/PF 0.5 ML SYR (>=10YO) IM PRN (08:50)
[2019-04-27] MEDS ORDERED: ACETAMINOPHEN 325 MG TABLET PO PRN (08:50)
--- NOTE | 2019-04-27 08:55 | PDOC DELIVERY SUMMARY ---
Delivery Summary - Maternal Hx : II Hx # Term Pregnancies: 1 Number of Living Children: 1 LINDA: 04/30/19 Gestational Age: 39+4 Risk Factors: Previous Ruptured Membranes: AROM Time of Rupture: 08:07 Fluids: Clear - Delivery Presentation: Vertex Heart Rate Monitoring: Done Pre-Operatively Support Person Present: Yes Location: OR : Scheduled Placenta: Within Normal Limits Placenta Description: normal appearing Nuchal Cord: No Delivery of Placenta Date: 04/27/19 Delivery of Placenta Time: 08:09 Estimated Blood Loss: 600 ml Delivery Quantitative Blood Loss (QBL): 490 - Medications Type of Anesthesia:: Spinal - Assess and Care Baby 1 Female Delivery of Date: 04/27/19 Delivery of Time: 08:07 at 1 minute: 8 at 5 minutes: 9 Preprinted Number On Band: [id number] Skin to Skin: Yes Skin to Skin (Mins): 4 To Nursery At: 08:18 Mode of Transport: Bassinet Delivery Weight: 3,300 Infant Delivery Length: 19.75 in - Delivery Personnel Lure Maker: FRED ESCALANTE Nursery RN: KING JOSE E Butt RN: SAIRA REID MD: SANGITA HOOPER
--- NOTE | 2019-04-27 08:59 | Operative Report ---
Operative Report DATE OF SURGERY: 04/27/19 PREOPERATIVE DIAGNOSIS: 1. Intrauterine at 39-4/7 weeks. 2. Previo us section x1. 3. GBS positive. 4. Tobacco use. 5. Rh+. 6. Rubella immune. 7. Asthma POSTOPERATIVE DIAGNOSIS: Same OPERATION: Repeat section SURGEON: SANGITA MENDOZA ANESTHESIA: Spinal TISSUE REMOVED OR ALTERED: Placenta COMPLICATIONS: None ESTIMATED BLOOD LOSS: 600 ml INTRAOPERATIVE FINDINGS: Female fetus in a cephalic position; Apgars 8 at 1, 9 at 5, normal uterus, bilateral tubes and ovaries PROCEDURE: The patient was taken to the operating room where spinal anesthesia was obtained and found to be adequate. She was then prepped and draped in the normal sterile fashion and placed in the dorsal supine position with a leftward tilt. A Pfannenstiel skin incision was then made and carried through to the underlying layers of the fascia with the scalpel. The fascia was incised in the midline and the incision extended laterally with the Morris scissors. The superior aspect of the fascial incision was then grasped with Za clamps elevated and the underlying rectus muscles dissected off both bluntly and sharply. Attention was then turned to the inferior aspect of the fascial incision which in a similar fashion was grasped, tented up with Za clamps, and the rectus muscles dissected off both bluntly and sharply. The rectus muscles were then in the midline and the peritoneum was identified and entered both sharply and bluntly. The peritoneal incision was then extended superiorly and inferiorly with good visualization of the bladder. The bladder blade was inserted and the vesicouterine peritoneum identified grasped with Luxembourger pickups and entered sharply with the Metzenbaum scissors. This incision was then extended laterally with the Metzenbaum scissors and a bladder flap created digitally. The bladder blade was then reinserted and the lower uterine segment incised in a transverse fashion with the scalpel. The uterine incision was then extended bluntly and with the bandage scissors. The bladder blade was removed and the infant's head was delivered from a cephalic presentation, atraumatically. The nose and mouth were suctioned and the cord doubly clamped and cut. The was handed off to waiting pediatricians. The placenta was then delivered manually and the uterus exteriorized and cleared of all clots and debris. The uterine incision was then repaired with 0 Vicryl in a running locked fashion. 0-Chromic was used to obtain hemostasis via imbrication of the initial layer. The abdomen was then copiously irrigated with warm normal saline. The uterus was returned to the patient's abdomen and Interceed was placed overlying the uterine incision, as well as a piece placed vertically on the anterior surface of the uterus, to prevent adhesions. The gutters were cleared of all clots and debris. All operative sites were noted to be hemostatic. The fascia was reapproximated with 0 Vicryl in a running fashion from each lateral edge to the midline. The subcutaneous fat layer was then closed in an interrupted fashion with 3-0 vicryl. The skin was closed with 4-0 Monocryl in a running, subcuticular fashion. The patient tolerated the procedure well. Sponge, lap, needle and instrument counts are correct x 2. 2 g of Ancef were given prior to skin incision. The patient was taken to the recovery area awake and in stable condition.
[2019-04-27] MEDS ORDERED: ACETAMINOPHEN 1,000 MG/100 ML RTUPB IV ONE (09:09)
[2019-04-27] MEDS ORDERED: HYDROMORPHONE HCL INJ/PF 2 MG/ML AMPULE ONE (09:47)
[2019-04-27] MEDS: HYDROMORPHONE HCL INJ/PF 2 MG/ML AMPULE IV PRN ×2 (09:52→12:49)
[2019-04-27] MEDS: DOCUSATE SODIUM 100 MG CAPSULE PO SCH ×2 (10:01→18:28)
[2019-04-27] MEDS: PRENATAL VITAMIN W DHA CAPSULE PO SCH (10:01)
[2019-04-27] MEDS: KETOROLAC TROMETHAMINE INJ/PF 30 MG/1 ML SDV IV SCH ×2 (11:13→18:22)
[2019-04-27] MEDS: OXYCODONE-ACETAMINOPHEN 5-325 MG TABLET PO PRN ×3 (11:14→22:47)
[2019-04-27] MEDS ORDERED: PHENYLEPHRINE HCL INJ/PF 10 MG/1 ML SDV ONE (15:24)
[2019-04-27] MEDS ORDERED: KETOROLAC TROMETHAMINE 60 MG/2 ML SDV ONE (15:24)
[2019-04-27] MEDS: RINGERS SOLUTION,LACTATED 1,000 ML IV PRN (18:28)
[2019-04-27] MEDS ORDERED: RINGERS SOLUTION,LACTATED 500 ML IV ONE (21:30)
[2019-04-28] MEDS: KETOROLAC TROMETHAMINE INJ/PF 30 MG/1 ML SDV IV SCH (02:27)
[2019-04-28] MEDS: RINGERS SOLUTION,LACTATED 1,000 ML IV PRN (02:28)
[2019-04-28 06:10] LABS: MEAN CORPUSCULAR HEMOGLOBIN 28.4 pg (27.0-33.4); MEAN CORPUSCULAR HGB CONC 32.8 g/dL (32.0-36.0); MEAN CORPUSCULAR VOLUME 87 fl (80-97); PLATELET COUNT 167 10^3/uL (150-450); RED CELL DISTRIBUTION WIDTH 14.2 % (11.5-14.0); WHITE BLOOD COUNT 11.2 10^3/uL (4.0-10.5)
[2019-04-28 06:18] LABS: HEMOGLOBIN 8.5 g/dL (12.0-15.5)
[2019-04-28] MEDS: IBUPROFEN 800 MG TABLET PO SCH ×3 (06:24→17:35)
[2019-04-28] MEDS: OXYCODONE-ACETAMINOPHEN 5-325 MG TABLET PO PRN ×3 (06:45→15:59)
[2019-04-28] MEDS: DOCUSATE SODIUM 100 MG CAPSULE PO SCH ×2 (09:32→17:35)
[2019-04-28] MEDS: PRENATAL VITAMIN W DHA CAPSULE PO SCH (09:32)
--- NOTE | 2019-04-28 09:39 | PDOC PROGRESS REPORT ---
Subjective-OB Progress Note for:: 04/28/19 Subjective: Doing well, pain under control, passing gas, eating Physical Exam (OB) Vital Signs: Temp Pulse Resp BP Pulse Ox 97.9 F 92 15 116/68 98 04/28/19 03:17 04/28/19 03:17 04/28/19 03:17 04/28/19 03:17 04/28/19 03:17 Intake & Output 04/27/19 04/28/19 04/29/19 06:59 06:59 06:59 Intake Total 3066 Output Total 1070 Balance 1995 Weight 95.708 kg - PIH/Pre-Eclampsia Clonus: Negative Headache: Absent Epigastric Pain: No Visual Changes: No - Dressing Removed: Yes - silktape covering optsite was removed, optsite has scant shadow drainage Incision: Dressing - Lochia Lochia Amount: Small 10-25 ml Lochia Color: Rubra/Red - Abdomen Description: Soft, Round Hernia Present: No Fundal Description: Firm, Midline Fundal Height: u/u - u/2 Objective-Diagnostic Laboratory: 04/28/19 05:49 04/28/19 05:49 WBC 11.2 H RBC 3.00 L Hgb 8.5 L D Hct 26.0 L MCV 87 MCH 28.4 MCHC 32.8 RDW 14.2 H Plt Count 167 Assessment and Plan(PN) - Assessment and Plan (1) Status post repeat low transverse section Is this a current diagnosis for this admission?: Yes - Time Spent with Patient Time with patient: Less than 15 minutes Medications reviewed and adjusted accordingly: Yes - Disposition Anticipated Discharge: Home Within: within 24 hours
--- NOTE | 2019-04-28 09:43 | PDOC DISCHARGE SUMMARY ---
Final Diagnosis Discharge Date: 04/29/19 - Final Diagnosis (1) Status post repeat low transverse section Is this a current diagnosis for this admission?: Yes (2) Anemia Is this a current diagnosis for this admission?: Yes Discharge Data - Discharge Medication Prescriptions: Oxycodone HCl/Acetaminophen [Percocet 5-325 mg Tablet] 1 tab PO Q4HP PRN #30 tablet PRN Reason: Ibuprofen [Motrin 800 mg Tablet] 800 mg PO Q6 #60 tablet Home Medications: No122/Iron/Folic Acid [ Multi Tablet] 1 tab PO DAILY 01/25/19 Ibuprofen [Motrin 800 mg Tablet] 800 mg PO Q6 #60 tablet 04/28/19 Oxycodone HCl/Acetaminophen [Percocet 5-325 mg Tablet] 1 tab PO Q4HP PRN #30 tablet 04/28/19 Gestational Age: 39.3 Reason(s) for Admission: Ceasarean Section-Repeat Procedures: NST, Ultrasound Intrapartum Procedure(s): : Low Cervical, Transverse - Data Baby 1 Female Home with Mother: Yes Complications: No - Diagnosis Test Laboratory: Temp Pulse Resp BP Pulse Ox 98.6 F 86 16 121/69 100 04/28/19 09:09 04/28/19 09:09 04/28/19 09:09 04/28/19 09:09 04/28/19 09:09 04/26/19 04/26/19 04/28/19 09:40 09:43 05:49 RBC 3.77 3.00 L Hgb 10.7 L 8.5 L D Hct 32.5 L 26.0 L Urine Opiates Screen NEGATIVE - Discharge information/Instructions Discharge Activity: Activity As Tolerated, No Lifting Over 10 Pounds, No Lifting/Push/Pulling, Pelvic Rest Discharge Diet: As Tolerated, Regular Disposition: HOME, SELF-CARE Follow up with: [facility] in: 1, Weeks
[2019-04-29] MEDS: IBUPROFEN 800 MG TABLET PO SCH ×3 (00:28→11:04)
[2019-04-29] MEDS: OXYCODONE-ACETAMINOPHEN 5-325 MG TABLET PO PRN ×3 (00:31→11:05)
[2019-04-29] MEDS ORDERED: MAG HYDROX/AL HYDROX/SIMETH SUSP 30 ML UDCUP PO PRN (03:31)
[2019-04-29] MEDS ORDERED: MAG HYDROX/AL HYDROX/SIMETH SUSP 30 ML UDCUP PO ONE (03:45)
--- NOTE | 2019-04-29 09:51 | PDOC PROGRESS REPORT ---
Subjective-OB Progress Note for:: 04/29/19 Subjective: Doing well, no c/o, OOB in room, passing good, eating well, pain under control Physical Exam (OB) Vital Signs: Temp Pulse Resp BP Pulse Ox 98.5 F 83 15 119/75 99 04/29/19 03:04 04/29/19 03:04 04/29/19 03:04 04/29/19 03:04 04/29/19 03:04 Intake & Output 04/28/19 04/29/19 04/30/19 06:59 06:59 06:59 Intake Total 3066 1440 Output Total 1070 700 Balance 1995 740 - PIH/Pre-Eclampsia DTR's: 2 + Clonus: Negative Headache: Absent Epigastric Pain: No Visual Changes: No - Dressing Removed: No - optsite intact with scant shadow drainage Incision: Dressing Closure Type: Surgical Glue - Lochia Lochia Amount: Small 10-25 ml Lochia Color: Rubra/Red - Abdomen Description: Soft, Round Hernia Present: No Fundal Description: Firm, Midline Fundal Height: u/u - u/2 Objective-Diagnostic Laboratory: 04/28/19 05:49 Assessment and Plan(PN) - Assessment and Plan (1) Status post repeat low transverse section Is this a current diagnosis for this admission?: Yes (2) Anemia Qualifiers: Anemia type: iron deficiency Is this a current diagnosis for this admission?: Yes - Time Spent with Patient Time with patient: Less than 15 minutes Medications reviewed and adjusted accordingly: Yes - Disposition Anticipated Discharge: Home Within: within 24 hours
[2019-04-29] MEDS: PRENATAL VITAMIN W DHA CAPSULE PO SCH (10:00)
[2019-04-29] MEDS ORDERED: FAMOTIDINE 20 MG TABLET PO SCH (10:00)
[2019-04-29] MEDS: DOCUSATE SODIUM 100 MG CAPSULE PO SCH (10:00)
[2019-04-29 10:47] VITALS: BP 105/80
== END 2019-04-29 14:45 | disposition home or self-care (01) | DRG 788 ==
LOC: 2S 05:02
PROVIDERS: ADMIT Obstetrics & Gynecology; ATTEND Obstetrics & Gynecology
PROC: 10D00Z1 Extraction of Products of Conception, Low, Open Approach (ICD-10-PCS; principal; 2019-04-27 07:45)
DX: O34.211 Maternal care for low transverse scar from previous cesarean delivery (principal); Z3A.39 39 weeks gestation of pregnancy; N85.8 Other specified noninflammatory disorders of uterus; O99.824 Streptococcus B carrier state complicating childbirth; O99.52 Diseases of the respiratory system complicating childbirth; J45.909 Unspecified asthma, uncomplicated; O99.02 Anemia complicating childbirth; D50.9 Iron deficiency anemia, unspecified; O99.334 Smoking (tobacco) complicating childbirth; F17.210 Nicotine dependence, cigarettes, uncomplicated; O99.214 Obesity complicating childbirth; E66.9 Obesity, unspecified; Z37.0 Single live birth
CPT/HCPCS: 1961; 36415; 59025; 80307; 81001; 85025; 85027; 86850; 86870; 86900; 86901; 86920; 86922; 94799; C1765; J0131; J1170; J1200; J1885; J2210; J2250; J2370; J2405; J2550; J2590; J2704; J2765; J3010; J3490; J7120

== ENCOUNTER → 2020-06-17 | Outpatient (CLI) | payer SELFPAY ==
--- NOTE | 2020-06-17 16:47 | RADIOLOGY REPORT (SQ) ---
EXAM DESCRIPTION: U/S OB 14+ TRNABD 1GES W/O DOP; U/S 22057 + EACH ADDIT GEST IMAGES COMPLETED DATE/TIME: 06/17/2020 4:29 pm REASON FOR STUDY: Z34.82 ENCOUNTER FOR SUPRVSN OF NORMAL , SECOND TRIMESTER Z34.82 ENCOUNT ER FOR SUPRVSN OF NORMAL , SECOND TRI COMPARISON: None. TECHNIQUE: Static and Dynamic grayscale imaging performed of gravid uterus using transabdominal appr oach. Additional selected color Doppler and spectral images recorded. All stored on PACS. LIMITATIONS: None. FINDINGS: FETUSES SEEN:2 CLINICAL DATES: 24 week 0 day. TWIN A: EGA: 22 week 1 day. Calculated using BPD,FL,HC,AC documented on images. LINDA: 10/20/2020. EFW: 491 grams PERCENTILE: 20%. LEONOR: 11.3 cm. LVP 3.6 x 8.4 cm. PLACENTA: Posterior. PRESENTATION: Breech. ANATOMY: HEART RATE: 139 beats per minute. FOUR CHAMBER HEART: Poorly visualized. THREE VESSEL CORD: Yes. CORD INSERTION: Visualized. KIDNEYS AND BLADDER: Visualized. Appear normal. STOMACH: Visualized. Appears normal. SPINE: Poorly visualized. BRAIN AND LATERAL VENTRICLES: Visualized. Appear normal. OTHER: No other significant finding. TWIN B: EGA: 20 week 0 day. Calculated using BPD,FL,HC,AC documented on images. LINDA: 11/04/2020. EFW: 306 grams PERCENTILE: Not applicable. Fetus less than or equal to 20 weeks gestation. LEONOR: 16.5 cm. LVP 4.4 x 7.7 cm. PLACENTA: Anterior fundal. PRESENTATION: Breech. ANATOMY: HEART RATE: 144 beats per minute. FOUR CHAMBER HEART: Poorly visualized. THREE VESSEL CORD: Yes. CORD INSERTION: Visualized. KIDNEYS AND BLADDER: Visualized. Appear normal. STOMACH: Visualized. Appears normal. SPINE: Normal as visualized. BRAIN AND LATERAL VENTRICLES: Visualized. Appear normal. OTHER: No other significant finding. MATERNAL ADNEXA: Maternal ovaries not visualized. CERVICAL LENGTH: 3.0 cm. Closed. OTHER: No other significant finding. IMPRESSION: LIVING INTRAUTERINE TWIN . ESTIMATED GESTATIONAL AGE TWIN A 22 WEEK 1 DAY. TWIN B 20 WEEK 0 DAY. NO VISUALIZED ANOMALIES. Trimester of : Second trimester - 13 weeks 1 day to 27 weeks 6 days. TECHNICAL DOCUMENTATION: JOB ID: [id number] [employer]- All Rights Reserved Reading location - IP/workstation name: [email or web address]
--- NOTE | 2020-06-17 16:47 | RADIOLOGY REPORT (SQ) ---
EXAM DESCRIPTION: U/S OB 14+ TRNABD 1GES W/O DOP; U/S 17739 + EACH ADDIT GEST IMAGES COMPLETED DATE/TIME: 06/17/2020 4:29 pm REASON FOR STUDY: Z34.82 ENCOUNTER FOR SUPRVSN OF NORMAL , SECOND TRIMESTER Z34.82 ENCOUNT ER FOR SUPRVSN OF NORMAL , SECOND TRI COMPARISON: None. TECHNIQUE: Static and Dynamic grayscale imaging performed of gravid uterus using transabdominal appr oach. Additional selected color Doppler and spectral images recorded. All stored on PACS. LIMITATIONS: None. FINDINGS: FETUSES SEEN:2 CLINICAL DATES: 24 week 0 day. TWIN A: EGA: 22 week 1 day. Calculated using BPD,FL,HC,AC documented on images. LINDA: 10/20/2020. EFW: 491 grams PERCENTILE: 20%. LEONOR: 11.3 cm. LVP 3.6 x 8.4 cm. PLACENTA: Posterior. PRESENTATION: Breech. ANATOMY: HEART RATE: 139 beats per minute. FOUR CHAMBER HEART: Poorly visualized. THREE VESSEL CORD: Yes. CORD INSERTION: Visualized. KIDNEYS AND BLADDER: Visualized. Appear normal. STOMACH: Visualized. Appears normal. SPINE: Poorly visualized. BRAIN AND LATERAL VENTRICLES: Visualized. Appear normal. OTHER: No other significant finding. TWIN B: EGA: 20 week 0 day. Calculated using BPD,FL,HC,AC documented on images. LINDA: 11/04/2020. EFW: 306 grams PERCENTILE: Not applicable. Fetus less than or equal to 20 weeks gestation. LEONOR: 16.5 cm. LVP 4.4 x 7.7 cm. PLACENTA: Anterior fundal. PRESENTATION: Breech. ANATOMY: HEART RATE: 144 beats per minute. FOUR CHAMBER HEART: Poorly visualized. THREE VESSEL CORD: Yes. CORD INSERTION: Visualized. KIDNEYS AND BLADDER: Visualized. Appear normal. STOMACH: Visualized. Appears normal. SPINE: Normal as visualized. BRAIN AND LATERAL VENTRICLES: Visualized. Appear normal. OTHER: No other significant finding. MATERNAL ADNEXA: Maternal ovaries not visualized. CERVICAL LENGTH: 3.0 cm. Closed. OTHER: No other significant finding. IMPRESSION: LIVING INTRAUTERINE TWIN . ESTIMATED GESTATIONAL AGE TWIN A 22 WEEK 1 DAY. TWIN B 20 WEEK 0 DAY. NO VISUALIZED ANOMALIES. Trimester of : Second trimester - 13 weeks 1 day to 27 weeks 6 days. TECHNICAL DOCUMENTATION: JOB ID: [id number] 2010 [employer]- All Rights Reserved Reading location - IP/workstation name: [email or web address]
== END ==
LOC: RAD 15:15
PROVIDERS: ATTEND Nurse Practitioner Family
DX: O30.002 Twin pregnancy, unspecified number of placenta and unspecified number of amniotic sacs, second trimester (principal); Z3A.22 22 weeks gestation of pregnancy
CPT/HCPCS: 76805; 76810

== ENCOUNTER 2020-08-15 10:29 | Outpatient (CLI) | payer MEDICAID ==
--- NOTE | 2020-08-15 11:45 | L&D Progress Notes ---
PROGRESS NOTES Datetime Report Generated by CPN: 08/15/2020 11:45 PROGRESS NOTE Comment: BPP ordered, NR NST x 2, no accels, smoked before she came in SIGNATURE SIGNATURE: [id number] Assignment: Victoria Arce MD Signature: with User ID: [email or web address] : with User ID: [email or web address]
[2020-08-15] MEDS ORDERED: RINGERS SOLUTION,LACTATED 1,000 ML IV PRN (12:11)
--- NOTE | 2020-08-15 12:26 | RADIOLOGY REPORT (SQ) ---
EXAM DESCRIPTION: U/S PROFILE W/O STRESS IMAGES COMPLETED DATE/TIME: 08/15/2020 12:02 pm REASON FOR STUDY: BPP, twins nonreactive nst; NONREACTIVE NST COMPARISON: 06/17/2020 TECHNIQUE: Limited ospina-scale realtime and static images of the fetus to measure specified parameter s. LIMITATIONS: None. FINDINGS: TWIN A HEART RATE: 127 beats per minute. LEONOR: 13.4 cm. BREATHING MOVEMENT: 2 points. MOVEMENT: 2 points. POSTURE AND TONE: 2 points. QUALITATIVE LEONOR: 2 points. OTHER: Breech presentation TWIN B HEART RATE: 135 beats per minute. LEONOR: 10.7 cm. MVP: 4 x 3 cm cm. BREATHING MOVEMENT: 2 points. MOVEMENT: 2 points. POSTURE AND TONE: 2 points. QUALITATIVE LEONOR: 2 points. OTHER: Vertex presentation IMPRESSION: TWIN A BIOPHYSICAL PROFILE: /. TWIN B BIOPHYSICAL PROFILE: 07/05. Trimester of : Third - 28 weeks to delivery COMMENT: BREATHING MOVEMENTS: 2 POINTS: PRESENT 0 POINTS: ABSENT MOTION: 2 POINTS: PRESENT 0 POINTS: ABSENT TONE: 2 POINTS: PRESENT 0 POINTS: ABSENT AMNIOTIC FLUID VOLUME: 2 POINTS: LARGEST POCKET GREATER THAN 2 CM DEPTH. 0 POINTS: NO POCKET OF 2 CM. TECHNICAL DOCUMENTATION: JOB ID: [id number] 06/17/20202010 [employer]- All Rights Reserved Reading location - IP/workstation name: [email or web address]
--- NOTE | 2020-08-15 12:26 | RADIOLOGY REPORT (SQ) ---
EXAM DESCRIPTION: U/S PROFILE W/O STRESS IMAGES COMPLETED DATE/TIME: 08/15/2020 12:02 pm REASON FOR STUDY: BPP, twins nonreactive nst; NONREACTIVE NST COMPARISON: 06/17/2020 TECHNIQUE: Limited ospina-scale realtime and static images of the fetus to measure specified parameter s. LIMITATIONS: None. FINDINGS: TWIN A HEART RATE: 127 beats per minute. LEONOR: 13.4 cm. BREATHING MOVEMENT: 2 points. MOVEMENT: 2 points. POSTURE AND TONE: 2 points. QUALITATIVE LEONOR: 2 points. OTHER: Breech presentation TWIN B HEART RATE: 135 beats per minute. LEONOR: 10.7 cm. MVP: 4 x 3 cm cm. BREATHING MOVEMENT: 2 points. MOVEMENT: 2 points. POSTURE AND TONE: 2 points. QUALITATIVE LEONOR: 2 points. OTHER: Vertex presentation IMPRESSION: TWIN A BIOPHYSICAL PROFILE: /. TWIN B BIOPHYSICAL PROFILE: 07/05. Trimester of : Third - 28 weeks to delivery COMMENT: BREATHING MOVEMENTS: 2 POINTS: PRESENT 0 POINTS: ABSENT MOTION: 2 POINTS: PRESENT 0 POINTS: ABSENT TONE: 2 POINTS: PRESENT 0 POINTS: ABSENT AMNIOTIC FLUID VOLUME: 2 POINTS: LARGEST POCKET GREATER THAN 2 CM DEPTH. 0 POINTS: NO POCKET OF 2 CM. TECHNICAL DOCUMENTATION: JOB ID: [id number] 06/17/20202010 [employer]- All Rights Reserved Reading location - IP/workstation name: [email or web address]
== END 2020-08-15 13:23 | disposition home or self-care (01) ==
LOC: LC 10:29
PROVIDERS: ATTEND Student in an Organized Health Care Education/Training Program
DX: O30.003 Twin pregnancy, unspecified number of placenta and unspecified number of amniotic sacs, third trimester (principal); O99.333 Smoking (tobacco) complicating pregnancy, third trimester; F17.210 Nicotine dependence, cigarettes, uncomplicated; Z3A.32 32 weeks gestation of pregnancy
CPT/HCPCS: 59025; 76819

== ENCOUNTER 2020-08-21 11:28 | Outpatient (CLI) | payer MEDICAID ==
--- NOTE | 2020-08-21 12:57 | RADIOLOGY REPORT (SQ) ---
EXAM DESCRIPTION: U/S PROFILE W/O STRESS IMAGES COMPLETED DATE/TIME: 08/21/2020 12:46 pm REASON FOR STUDY: NR NST COMPARISON: None. TECHNIQUE: Limited ospina-scale realtime and static images of the fetus to measure specified parameter s. LIMITATIONS: None. FINDINGS: HEART RATE: 141 beats per minute. MVP: 5.0 x 4.2 cm. BREATHING MOVEMENT: 2 points. MOVEMENT: 2 points. POSTURE AND TONE: 2 points. QUALITATIVE LEONOR: 2 points. OTHER: No other significant finding. IMPRESSION: BABY A BIOPHYSICAL PROFILE: 07/05. Trimester of : Third - 28 weeks to delivery COMMENT: BREATHING MOVEMENTS: 2 POINTS: PRESENT 0 POINTS: ABSENT MOTION: 2 POINTS: PRESENT 0 POINTS: ABSENT TONE: 2 POINTS: PRESENT 0 POINTS: ABSENT AMNIOTIC FLUID VOLUME: 2 POINTS: LARGEST POCKET GREATER THAN 2 CM DEPTH. 0 POINTS: NO POCKET OF 2 CM. TECHNICAL DOCUMENTATION: JOB ID: [id number] 2010 [email or web address]- All Rights Reserved Reading location - IP/workstation name: [email or web address]
--- NOTE | 2020-08-21 13:01 | RADIOLOGY REPORT (SQ) ---
EXAM DESCRIPTION: U/S PROFILE W/O STRESS IMAGES COMPLETED DATE/TIME: 08/21/2020 12:46 pm REASON FOR STUDY: NR NST- TWIN GESTATION COMPARISON: None. TECHNIQUE: Limited ospina-scale realtime and static images of the fetus to measure specified parameter s. LIMITATIONS: None. FINDINGS: HEART RATE: 152 beats per minute. MVP: 3.9 X 3.8 cm. BREATHING MOVEMENT: 0 points. MOVEMENT: 2 points. POSTURE AND TONE: 2 points. QUALITATIVE LEONOR: 2 points. OTHER: Transverse presentation. IMPRESSION: BABY B BIOPHYSICAL PROFILE: 05/05. Trimester of : Third - 28 weeks to delivery COMMENT: BREATHING MOVEMENTS: 2 POINTS: PRESENT 0 POINTS: ABSENT MOTION: 2 POINTS: PRESENT 0 POINTS: ABSENT TONE: 2 POINTS: PRESENT 0 POINTS: ABSENT AMNIOTIC FLUID VOLUME: 2 POINTS: LARGEST POCKET GREATER THAN 2 CM DEPTH. 0 POINTS: NO POCKET OF 2 CM. TECHNICAL DOCUMENTATION: JOB ID: [id number] 2010 [employer]- All Rights Reserved Reading location - IP/workstation name: [email or web address]
== END 2020-08-21 13:05 | disposition home or self-care (01) ==
LOC: LC 11:28
PROVIDERS: ATTEND Obstetrics & Gynecology
DX: O30.003 Twin pregnancy, unspecified number of placenta and unspecified number of amniotic sacs, third trimester (principal); O99.333 Smoking (tobacco) complicating pregnancy, third trimester; F17.210 Nicotine dependence, cigarettes, uncomplicated; Z3A.33 33 weeks gestation of pregnancy
CPT/HCPCS: 59025; 76819

== ENCOUNTER 2020-08-22 14:55 | Outpatient (CLI) | payer MEDICAID ==
--- NOTE | 2020-08-22 16:49 | Non Stress Test Report ---
Non Stress Test Datetime Report Generated by CPN: 08/22/2020 16:48 DEMOGRAPHIC EGA NST: 33.3 INDICATION Indication for Study (NST) Other: Repeat NST and BPP VITAL SIGNS Temperature - NST: 98.5 Pulse - NST: 98 RESP - NST: 16 NBPSYS NST: 119 NBPDIA NST: 75 MONITORING Monitor Explained: Monitor Explained; Test Explained; Patient Verbalized Understanding Time on Monitor: 08/22/2020 15:46 Time off Monitor: 08/22/2020 16:09 NST Duration: 23 NST INTERVENTIONS NST Interventions: PO Hydration; For Biophysical Profile Physician Notified NST: A. Rodriguez CNM BABY A: [id number] BABY A Movement : Present Contraction Frequency : None FHR Baseline : 125 Accelerations : 15X15 Decelerations : None Variability : Minimal - Undetectable to <=5bpm NST Review: Meets Criteria for Reactive NST NST Review and Verified By : Lloyd Nicholas RN NST Results: Reactive BABY B Movement: Present FHR Baseline: 135 Accelerations: 15X15 Decelerations: None Variability: Minimal - Undetectable to <=5bpm NST Review: Meets Criteria for Reactive NST NST Reviewed And Verified By: Lloyd WayneN NST Results: Reactive NST COMMENTS NST Comments: CNM on unit reviewing FHT strip NST REPORT Report Trigger: Send Report
--- NOTE | 2020-08-22 17:01 | RADIOLOGY REPORT (SQ) ---
EXAM DESCRIPTION: U/S PROFILE W/O STRESS IMAGES COMPLETED DATE/TIME: 08/22/2020 4:36 pm REASON FOR STUDY: antepartum testing, baby B with IUGR COMPARISON: 08/21/2020 TECHNIQUE: Limited ospina-scale realtime and static images of the fetus to measure specified parameter s. LIMITATIONS: None. FINDINGS: BABY A: HEART RATE: 136 beats per minute. LEONOR: Adequate cm. MVP: 4 x 4 cm. BREATHING MOVEMENT: 2 points. MOVEMENT: 2 points. POSTURE AND TONE: 2 points. QUALITATIVE LEONOR: 2 points. OTHER: Breech BABY B: HEART RATE: 128 beats per minute. LEONOR: Adequate cm. MVP: 4 x 3 cm. BREATHING MOVEMENT: 2 points. MOVEMENT: 2 points. POSTURE AND TONE: 2 points. QUALITATIVE LEONOR: 2 points. OTHER: Transverse lie with the head to the maternal right. IMPRESSION: BIOPHYSICAL PROFILE: 07/05. FINDINGS DESCRIBED. Trimester of : Third - 28 weeks to delivery COMMENT: BREATHING MOVEMENTS: 2 POINTS: PRESENT 0 POINTS: ABSENT MOTION: 2 POINTS: PRESENT 0 POINTS: ABSENT TONE: 2 POINTS: PRESENT 0 POINTS: ABSENT AMNIOTIC FLUID VOLUME: 2 POINTS: LARGEST POCKET GREATER THAN 2 CM DEPTH. 0 POINTS: NO POCKET OF 2 CM. TECHNICAL DOCUMENTATION: JOB ID: [id number] 2010 [employer]- All Rights Reserved Reading location - IP/workstation name: [email or web address]
--- NOTE | 2020-08-22 17:03 | RADIOLOGY REPORT (SQ) ---
EXAM DESCRIPTION: U/S [id number] + EACH ADDIT GEST IMAGES COMPLETED DATE/TIME: 08/22/2020 4:36 pm REASON FOR STUDY: antepartum testing,baby b with IUGR TWINS COMPARISON: None. TECHNIQUE: profile. See separate report containing biophysical profiles for both fetuses. LIMITATIONS: None. FINDINGS: See separate report. IMPRESSION: See separate report. TECHNICAL DOCUMENTATION: JOB ID: [id number] 2010 [employer]- All Rights Reserved Reading location - IP/workstation name: [email or web address]
== END 2020-08-22 16:45 | disposition home or self-care (01) ==
LOC: LC 14:55
PROVIDERS: ATTEND Obstetrics & Gynecology Gynecology
DX: O30.003 Twin pregnancy, unspecified number of placenta and unspecified number of amniotic sacs, third trimester (principal); O99.333 Smoking (tobacco) complicating pregnancy, third trimester; F17.210 Nicotine dependence, cigarettes, uncomplicated; Z3A.33 33 weeks gestation of pregnancy
CPT/HCPCS: 59025; 76802; 76819; 94760

== ENCOUNTER 2020-08-26 11:59 | Outpatient (CLI) | payer MEDICAID ==
[2020-08-26 13:06] LABS: APPEARANCE,URINE CLEAR; BILIRUBIN,URINE NEGATIVE (NEGATIVE); COLOR,URINE YELLOW; GLUCOSE, URINE NEGATIVE (NEGATIVE); KETONES,URINE NEGATIVE (NEGATIVE); LEUKOCYTE ESTERASE,URINE NEGATIVE (NEGATIVE); NITRITE,URINE NEGATIVE (NEGATIVE); PROTEIN,URINE 30 mg/dL (NEGATIVE); URINE SPECIFIC GRAVITY 1.027
[2020-08-26 13:19] LABS: URINE AMPHETAMINES SCREEN NEGATIVE; URINE BARBITURATES SCREEN NEGATIVE; URINE BENZODIAZEPINES SCREEN NEGATIVE; URINE COCAINE SCREEN NEGATIVE; URINE MARIJUANA (THC) SCREEN NEGATIVE; URINE METHADONE SCREEN NEGATIVE; URINE PHENCYCLIDINE SCREEN NEGATIVE
[2020-08-26] MEDS ORDERED: BETAMET ACET/BETAMET NA INJ 6 MG/1 ML ONE (13:20)
--- NOTE | 2020-08-26 13:20 | PDOC TRANSFER SUMMARY ---
General Admission Date/PCP: ROMARIO YI MD Transfer Date: 08/26/20 Accepting Facility: [facility] Resuscitation Status: Full Code - Transfer Diagnosis (1) Twin gestation in third trimester Is this a current diagnosis for this admission?: Yes (2) IUGR (intrauterine growth restriction) Is this a current diagnosis for this admission?: Yes - Transfer Medications Home Medications: No122/Iron/Folic Acid [ Multi Tablet] 1 tab PO DAILY 01/25/19 - Allergies Allergies/Adverse Reactions: No Known Allergies Allergy (Verified 08/26/20 12:09) Hospital Course Hospital Course: pt admitted for observation and steroid per Erik Dia. Pt has IUGR and rising dopplers with possibility of needing early delivery. She has has two prior c- sections. Pt discussed with Erik Dia and Dr. Linares and feel the twins may need specialized NICU care. Also discussed with our neonatalogist who feels she should be transferred. Pt has been given first dose of steroid and is stable. Physical Exam Vital Signs: Intake & Output 08/25/20 08/26/20 08/27/20 06:59 06:59 06:59 Weight 95.7 kg General appearance: PRESENT: no acute distress Head exam: PRESENT: atraumatic Respiratory exam: PRESENT: clear to auscultation mallory Cardiovascular exam: PRESENT: RRR GI/Abdominal exam: PRESENT: soft Rectal exam: PRESENT: deferred Neurological exam: PRESENT: alert Results Laboratory Results: 08/26/20 12:08 Urine Color YELLOW Urine Appearance CLEAR Urine pH 6.0 Ur Specific [place] 1.027 Urine Protein 30 H Urine Glucose (UA) NEGATIVE Urine Ketones NEGATIVE Urine Blood NEGATIVE Urine Nitrite NEGATIVE Ur Leukocyte Esterase NEGATIVE Urine WBC (Auto) 1 Urine RBC (Auto) 0 Plan Discharge Plan: Transfer patient to [facility] for evaluation and care. Time Spent: Greater than 30 Minutes
[2020-08-26] MEDS ORDERED: BETAMET ACET/BETAMET NA INJ 6 MG/1 ML IM ONE (14:34)
== END 2020-08-26 15:08 | disposition short-term general hospital (02) ==
LOC: LC 11:59
PROVIDERS: ATTEND Obstetrics & Gynecology Gynecology
DX: O30.003 Twin pregnancy, unspecified number of placenta and unspecified number of amniotic sacs, third trimester (principal); Z3A.32 32 weeks gestation of pregnancy
CPT/HCPCS: 59025; 81001; 80307; J0702